=== PATIENT | female | born 1950 | race Two or more races ===

== ENCOUNTER 2016-11-18 21:48 | Inpatient (IN) | payer SELFPAY ==
[~2016-11-18] VITALS: Ht 147.3 cm; Wt 65.0 kg
[2016-11-18] MEDS ORDERED: ASPIRIN 81 MG TAB.CHEW ONE (22:11)
[2016-11-18] MEDS ORDERED: FUROSEMIDE 40 MG/4 ML VIAL ONE (22:11)
[2016-11-18] MEDS ORDERED: NITROGLYCERIN PACKET 1 GM PACKET ONE (22:11)
[2016-11-18 22:21] LABS: BASOPHILS # (AUTO) 0.1 /CMM (0.0-0.2); BASOPHILS % (AUTO) 0.3 % (0.0-2.0); DIFF TOTAL % 100 %; EOSINOPHILS # (AUTO) 0.2 /CMM (0.0-0.7); HEMATOCRIT 33 % (33-45); HEMOGLOBIN 10.2 g/dL (11.5-14.8); LYMPHOCYTES # (AUTO) 1.1 /CMM (0.8-4.8); LYMPHOCYTES % (AUTO) 7.4 % (20.0-44.0); MEAN CORPUSCULAR HEMOGLOBIN 25 PG (26.0-33.0); MEAN CORPUSCULAR HGB CONC 31 g/dl (31.0-36.0); MEAN CORPUSCULAR VOLUME 80 fL (82-100); MONOCYTES # (AUTO) 1.2 /CMM (0.1-1.30); MONOCYTES % (AUTO) 7.8 % (2.0-12.0); NEUTROPHILS # (AUTO) 12.5 /CMM (1.8-8.9); NEUTROPHILS % (AUTO) 83.5 % (43.0-81.0); PLATELET COUNT (AUTO) 570 /CMM (150-450); RED BLOOD CELL COUNT(AUTO) 4.12 MIL/uL (4.0-5.2); WHITE BLOOD COUNT (AUTO) 14.9 K/uL (4.3-11.0)
[2016-11-18] MEDS ORDERED: NITROGLYCERIN 0.4 MG/TAB BOTTLE SL ONE (22:30)
[2016-11-18] MEDS ORDERED: ASPIRIN 81 MG TAB.CHEW PO ONE (22:30)
[2016-11-18] MEDS ORDERED: FUROSEMIDE 40 MG/4 ML VIAL IV ONE (22:30)
[2016-11-18] MEDS ORDERED: NITROGLYCERIN PACKET 1 GM PACKET TD ONE (22:30)
[2016-11-18 22:39] LABS: TROPONIN I < 0.017 ng/mL (0.00-0.056)
[2016-11-18 22:44] LABS: ALANINE AMINOTRANSFERASE 51 U/L (12-78); ALBUMIN 2.5 g/dL (3.4-5.0); ANION GAP 13 (5-14); ASPARTATE AMINOTRANSFERASE 127 U/L (15-37); BILIRUBIN,DIRECT 0.1 mg/dL (0.0-0.2); BILIRUBIN,TOTAL 0.9 mg/dL (0.2-1.0); CALCIUM, SERUM 8.4 mg/dL (8.5-10.1); CARBON DIOXIDE 25 mmol/L (21-32); CHLORIDE 105 mmol/L (98-107); GFR 55 mL/min (>60); GLUCOSE 240 mg/dL (74-106); SODIUM SERUM 134 mmol/L (136-145); TOTAL PROTEIN, SERUM 7.7 g/dL (6.4-8.2); UREA NITROGEN, BLOOD 23 mg/dL (7-18)
[2016-11-18 22:46] LABS: INDIRECT BILIRUBIN 0.8 mg/dL (0.0-1.1); POTASSIUM 7.6 mmol/L (3.5-5.1)
[2016-11-18 23:42] LABS: CALCIUM, SERUM 8.9 mg/dL (8.5-10.1); CREATININE 1.1 mg/dL (0.6-1.3); POTASSIUM 5.3 mmol/L (3.5-5.1)
[2016-11-18 23:50] VITALS: BP 105/59
[2016-11-18 23:55] LABS: KETONES,URINE NEGATIVE (NEGATIVE); LEUKOCYTE ESTERASE ,URINE NEGATIVE (NEGATIVE); PH,URINE 5.5 (5.0-8.0)
[2016-11-18 23:57] LABS: ADD UA MICROSCOPIC YES
[2016-11-19 00:06] LABS: ADD URINE CULTURE NO; WBC,URINE 0-2 /HPF (0-3)
[2016-11-19 00:15] VITALS: BP 125/59
[2016-11-19] MEDS ORDERED: Z GUARD REMEDY 2 OZ OINT TP PRN (01:30)
[2016-11-19] MEDS ORDERED: ZOLPIDEM TARTRATE 5 MG TABLET PO PRN (01:30)
[2016-11-19] MEDS ORDERED: MAG HYDROX/AL HYDROX/SIMETH 30 ML UDC PO PRN (01:30)
[2016-11-19] MEDS ORDERED: ONDANSETRON HCL/PF 4 MG/2 ML VIAL IVP PRN (01:30)
[2016-11-19] MEDS ORDERED: MAGNESIUM HYDROXIDE 30 ML UDC PO PRN (01:30)
[2016-11-19] MEDS ORDERED: DEXTROSE 50%-WATER 50 ML DISP.SYRIN IV PRN (01:30)
[2016-11-19 04:00] VITALS: BP 109/61
[2016-11-19] MEDS: BLOOD SUGAR DIAGNOSTIC 1 EACH STRIP IN SCH ×4 (06:32→22:08)
[2016-11-19 08:00] VITALS: BP 106/73
[2016-11-19 08:21] LABS: PHOSPHORUS 4.3 mg/dL (2.5-4.9)
[2016-11-19 08:33] LABS: BASOPHILS # (AUTO) 0.1 /CMM (0.0-0.2); BASOPHILS % (AUTO) 0.4 % (0.0-2.0); DIFF TOTAL % 100 %; EOSINOPHILS # (AUTO) 0.1 /CMM (0.0-0.7); EOSINOPHILS % (AUTO) 0.9 % (0.0-6.0); HEMATOCRIT 29 % (33-45); HEMOGLOBIN 9.4 g/dL (11.5-14.8); LYMPHOCYTES # (AUTO) 1.6 /CMM (0.8-4.8); LYMPHOCYTES % (AUTO) 13.5 % (20.0-44.0); MEAN CORPUSCULAR HEMOGLOBIN 28 PG (26.0-33.0); MEAN CORPUSCULAR HGB CONC 32 g/dl (31.0-36.0); MEAN CORPUSCULAR VOLUME 88 fL (82-100); MONOCYTES # (AUTO) 1.1 /CMM (0.1-1.30); MONOCYTES % (AUTO) 9.6 % (2.0-12.0); NEUTROPHILS # (AUTO) 8.8 /CMM (1.8-8.9); NEUTROPHILS % (AUTO) 75.6 % (43.0-81.0); PLATELET COUNT (AUTO) 476 /CMM (150-450); RED BLOOD CELL COUNT(AUTO) 3.29 MIL/uL (4.0-5.2); WHITE BLOOD COUNT (AUTO) 11.6 K/uL (4.3-11.0)
[2016-11-19 08:36] LABS: CALCIUM, SERUM 8.5 mg/dL (8.5-10.1); POTASSIUM 4.9 mmol/L (3.5-5.1)
[2016-11-19 08:41] LABS: ALBUMIN 2.4 g/dL (3.4-5.0); BILIRUBIN,TOTAL 0.7 mg/dL (0.2-1.0); TOTAL PROTEIN, SERUM 6.9 g/dL (6.4-8.2)
[2016-11-19 08:47] LABS: THYROID STIMULATING HORMONE 2.989 uIU/mL (0.358-3.74)
[2016-11-19 08:49] LABS: TROPONIN I 0.013 ng/mL (0.00-0.056)
[2016-11-19] MEDS ORDERED: ENOXAPARIN SODIUM 30 MG/0.3 ML DISP.SYRIN SQ SCH (09:00)
[2016-11-19] MEDS ORDERED: ENOXAPARIN SODIUM 40 MG/0.4 ML DISP.SYRIN SQ SCH (09:00)
[2016-11-19] MEDS: PANTOPRAZOLE 40 MG TABLET.DR PO SCH (09:02)
[2016-11-19] MEDS: FUROSEMIDE 40 MG/4 ML VIAL IV SCH ×3 (09:03→16:39)
[2016-11-19] MEDS: ACETAMINOPHEN 325 MG TABLET PO PRN ×2 (10:13→22:40)
[2016-11-19 16:00] VITALS: BP 99/68
[2016-11-19] MEDS: INSULIN REGULAR, HUMAN 100 UNIT/ML 3 ML VIAL SQ PRN (17:25)
[2016-11-19] MEDS: GUAIFENESIN/D-METHORPHAN HB 5 ML UDC PO PRN ×2 (17:30→21:54)
[2016-11-19 20:00] VITALS: BP 95/56
[2016-11-19] MEDS: INSULIN DETEMIR 100 UNIT/ML CARTRIDGE SQ SCH (22:07)
[2016-11-20] MEDS: GUAIFENESIN/D-METHORPHAN HB 5 ML UDC PO PRN ×3 (05:33→20:32)
[2016-11-20 07:05] LABS: ALANINE AMINOTRANSFERASE 36 U/L (12-78); ALBUMIN 2.4 g/dL (3.4-5.0); ANION GAP 8 (5-14); ASPARTATE AMINOTRANSFERASE 41 U/L (15-37); BILIRUBIN,TOTAL 0.8 mg/dL (0.2-1.0); CALCIUM, SERUM 8.4 mg/dL (8.5-10.1); CARBON DIOXIDE 31 mmol/L (21-32); CHLORIDE 104 mmol/L (98-107); CREATININE 1.1 mg/dL (0.6-1.3); GFR 49 mL/min (>60); GLUCOSE 55 mg/dL (74-106); PHOSPHORUS 4.3 mg/dL (2.5-4.9); POTASSIUM 3.5 mmol/L (3.5-5.1); SODIUM SERUM 139 mmol/L (136-145); TROPONIN I < 0.017 ng/mL (0.00-0.056); UREA NITROGEN, BLOOD 23 mg/dL (7-18)
[2016-11-20] MEDS: BLOOD SUGAR DIAGNOSTIC 1 EACH STRIP IN SCH ×4 (07:25→20:32)
[2016-11-20] MEDS ORDERED: WARFARIN SODIUM 5 MG TABLET PO SCH (07:30)
[2016-11-20 07:52] VITALS: BP 98/60
[2016-11-20 08:00] VITALS: BP 98/60
[2016-11-20 08:12] LABS: BASOPHILS % (AUTO) 0.2 % (0.0-2.0); DIFF TOTAL % 100 %; EOSINOPHILS # (AUTO) 0.2 /CMM (0.0-0.7); EOSINOPHILS % (AUTO) 2.4 % (0.0-6.0); HEMATOCRIT 30 % (33-45); HEMOGLOBIN 9.4 g/dL (11.5-14.8); LYMPHOCYTES # (AUTO) 1.4 /CMM (0.8-4.8); LYMPHOCYTES % (AUTO) 13.6 % (20.0-44.0); MEAN CORPUSCULAR HEMOGLOBIN 27 PG (26.0-33.0); MEAN CORPUSCULAR HGB CONC 32 g/dl (31.0-36.0); MEAN CORPUSCULAR VOLUME 84 fL (82-100); MONOCYTES # (AUTO) 1.1 /CMM (0.1-1.30); MONOCYTES % (AUTO) 10.2 % (2.0-12.0); NEUTROPHILS # (AUTO) 7.8 /CMM (1.8-8.9); NEUTROPHILS % (AUTO) 73.6 % (43.0-81.0); PLATELET COUNT (AUTO) 493 /CMM (150-450); RED BLOOD CELL COUNT(AUTO) 3.52 MIL/uL (4.0-5.2); WHITE BLOOD COUNT (AUTO) 10.6 K/uL (4.3-11.0)
[2016-11-20] MEDS: PANTOPRAZOLE 40 MG TABLET.DR PO SCH (08:53)
[2016-11-20] MEDS: ACETAMINOPHEN 325 MG TABLET PO PRN (08:57)
[2016-11-20] MEDS ORDERED: ENOXAPARIN SODIUM 60 MG/0.6 ML DISP.SYRIN SQ SCH (09:00)
[2016-11-20] MEDS ORDERED: IV SET PRIMARY PUMP SET 1 EA INFUS.SET MC ONE ×2 (10:22→14:43)
[2016-11-20] MEDS: Magnesium 1GM/D5W 100ML PREMIX 100 ML IV SCH ×4 (10:28→13:21)
[2016-11-20] MEDS: INSULIN REGULAR, HUMAN 100 UNIT/ML 3 ML VIAL SQ PRN ×2 (12:25→17:49)
[2016-11-20 13:25] LABS: PROTHROMBIN TIME 102.4 SECS (9.5-12.7)
[2016-11-20 13:50] LABS: INR 9.27 (0.87-1.13)
[2016-11-20] MEDS: SOD FERRIC GLUC 125 MG in IV NS 0.9% 100 ML IV SCH (15:12)
[2016-11-20 16:00] VITALS: BP 104/63
[2016-11-20] MEDS ORDERED: CETI1SOL48 PO (16:02)
[2016-11-20] MEDS ORDERED: FURO-145 PO (16:02)
[2016-11-20] MEDS ORDERED: PARO20TA6 PO (16:02)
[2016-11-20] MEDS ORDERED: PANT40TA4 PO (16:02)
[2016-11-20] MEDS ORDERED: METO100T3 PO (16:02)
[2016-11-20] MEDS ORDERED: GABA-532 PO (16:02)
[2016-11-20] MEDS ORDERED: WARF1TAB6 PO (16:02)
[2016-11-20] MEDS ORDERED: METF500T4 PO (16:02)
[2016-11-20 20:00] VITALS: BP 107/61
[2016-11-20] MEDS: INSULIN DETEMIR 100 UNIT/ML CARTRIDGE SQ SCH (20:40)
[2016-11-21] MEDS: BLOOD SUGAR DIAGNOSTIC 1 EACH STRIP IN SCH ×4 (06:48→22:42)
[2016-11-21] MEDS: GUAIFENESIN/D-METHORPHAN HB 5 ML UDC PO PRN ×3 (06:48→21:55)
[2016-11-21] MEDS: INSULIN REGULAR, HUMAN 100 UNIT/ML 3 ML VIAL SQ PRN ×4 (07:17→22:45)
[2016-11-21 07:33] LABS: BASOPHILS % (AUTO) 0.2 % (0.0-2.0); DIFF TOTAL % 100 %; EOSINOPHILS # (AUTO) 0.2 /CMM (0.0-0.7); EOSINOPHILS % (AUTO) 1.7 % (0.0-6.0); HEMATOCRIT 28 % (33-45); HEMOGLOBIN 9.1 g/dL (11.5-14.8); LYMPHOCYTES # (AUTO) 1.1 /CMM (0.8-4.8); LYMPHOCYTES % (AUTO) 9.7 % (20.0-44.0); MEAN CORPUSCULAR HEMOGLOBIN 28 PG (26.0-33.0); MEAN CORPUSCULAR HGB CONC 33 g/dl (31.0-36.0); MEAN CORPUSCULAR VOLUME 85 fL (82-100); MONOCYTES # (AUTO) 0.8 /CMM (0.1-1.30); MONOCYTES % (AUTO) 6.8 % (2.0-12.0); NEUTROPHILS # (AUTO) 9.5 /CMM (1.8-8.9); NEUTROPHILS % (AUTO) 81.6 % (43.0-81.0); PLATELET COUNT (AUTO) 468 /CMM (150-450); RED BLOOD CELL COUNT(AUTO) 3.31 MIL/uL (4.0-5.2); WHITE BLOOD COUNT (AUTO) 11.6 K/uL (4.3-11.0)
[2016-11-21 08:00] VITALS: BP 95/66
[2016-11-21 08:07] LABS: PROTHROMBIN TIME 57.5 SECS (9.5-12.7)
[2016-11-21 08:14] LABS: INR 5.24 (0.87-1.13)
[2016-11-21 08:17] LABS: ALBUMIN 2.5 g/dL (3.4-5.0); BILIRUBIN,TOTAL 0.8 mg/dL (0.2-1.0); CALCIUM, SERUM 8.3 mg/dL (8.5-10.1); PHOSPHORUS 3.3 mg/dL (2.5-4.9); POTASSIUM 4.8 mmol/L (3.5-5.1)
[2016-11-21] MEDS: PANTOPRAZOLE 40 MG TABLET.DR PO SCH (08:52)
[2016-11-21 09:18] VITALS: BP 95/66
[2016-11-21] MEDS: ACETAMINOPHEN 325 MG TABLET PO PRN (12:10)
[2016-11-21] MEDS: SOD FERRIC GLUC 125 MG in IV NS 0.9% 100 ML IV SCH (14:48)
[2016-11-21 16:00] VITALS: BP 109/64
[2016-11-21 16:37] LABS: *SPE ALBUMIN 2.7 g/dL (2.9-4.4)
[2016-11-21] MEDS: BENZONATATE 100 MG CAPSULE PO PRN (16:50)
[2016-11-21 17:34] VITALS: BP 186/83
[2016-11-21 20:00] VITALS: BP 99/51
[2016-11-21] MEDS: INSULIN DETEMIR 100 UNIT/ML CARTRIDGE SQ SCH (22:49)
[2016-11-22] MEDS: BLOOD SUGAR DIAGNOSTIC 1 EACH STRIP IN SCH ×3 (06:00→17:46)
[2016-11-22] MEDS ORDERED: ROCURONIUM BROMIDE 50 MG/5 ML ONE (07:03)
[2016-11-22] MEDS ORDERED: MIDAZOLAM HCL 2 MG/2ML VIAL ONE (07:03)
[2016-11-22] MEDS ORDERED: FENTANYL PF 100MCG/2ML AMPUL ONE (07:03)
[2016-11-22 07:59] LABS: INR 2.94 (0.87-1.13); PROTHROMBIN TIME 32.1 SECS (9.5-12.7)
[2016-11-22 08:00] VITALS: BP 92/53
[2016-11-22] MEDS: BENZONATATE 100 MG CAPSULE PO PRN (08:36)
[2016-11-22] MEDS: PANTOPRAZOLE 40 MG TABLET.DR PO SCH (08:36)
[2016-11-22] MEDS ORDERED: IV SET PRIMARY PUMP SET 1 EA INFUS.SET MC ONE (15:15)
[2016-11-22] MEDS: SOD FERRIC GLUC 125 MG in IV NS 0.9% 100 ML IV SCH (15:16)
[2016-11-22 16:00] VITALS: BP 108/58
[2016-11-22] MEDS: INSULIN REGULAR, HUMAN 100 UNIT/ML 3 ML VIAL SQ PRN (17:49)
== END 2016-11-22 22:43 | disposition home or self-care (01) | DRG 292 ==
LOC: ER 21:49 → TELE 23:40 → MED 11-19 11:09
PROVIDERS: ADMIT Nurse Practitioner Acute Care; ATTEND Nurse Practitioner Acute Care
DX: I11.0 Hypertensive heart disease with heart failure (principal); I48.92 Unspecified atrial flutter; I50.33 Acute on chronic diastolic (congestive) heart failure; E11.65 Type 2 diabetes mellitus with hyperglycemia; E87.5 Hyperkalemia; E86.0 Dehydration; E66.9 Obesity, unspecified; I25.10 Atherosclerotic heart disease of native coronary artery without angina pectoris; Z95.2 Presence of prosthetic heart valve; Z95.1 Presence of aortocoronary bypass graft; Z95.0 Presence of cardiac pacemaker; Z79.4 Long term (current) use of insulin; D50.9 Iron deficiency anemia, unspecified; D47.3 Essential (hemorrhagic) thrombocythemia; Z68.30 Body mass index [BMI] 30.0-30.9, adult; I48.91 Unspecified atrial fibrillation; I50.1 Left ventricular failure, unspecified
CPT/HCPCS: 36415; 71010-TC; 80048-TC; 80053-TC; 80061-TC; 80076-TC; 81000-TC; 82306; 82728-TC; 82962-TC; 83540-TC; 83735-TC; 83880; 84100-TC; 84155; 84165; 84439-TC; 84443-TC; 84484-TC; 85025-TC; 85610-TC; 87081-TC; 93307-TC; A4606; J1650; J1815; J1940; J2250; J2916; J3010; J3475; J7030; Z7610

== ENCOUNTER 2022-08-06 17:28 | Inpatient (IN) | payer MEDICARE, OTHER ==
[~2022-08-06] VITALS: Ht 152.4 cm; Wt 69.4 kg
[~2022-08-06 17:28] MED LIST: CETI1SOL48 PO; FURO-145 PO; GABA-532 PO; METF-440 PO; METO100T14 PO; PANT40TA49 PO; PARO20TA7 PO
--- NOTE | 2022-08-06 17:30 | NUR ---
BIB RA 37 FROM HOME,SOB X 2 HRS,BLOOD NLNNJ=[id number]
--- NOTE | 2022-08-06 17:40 | NUR ---
IV established by paramedics LAC 20g infusing
[2022-08-06] MEDS ORDERED: DILTIAZEM HCL 25 MG IV IVP ONE (18:00)
--- NOTE | 2022-08-06 19:03 | NUR ---
COVID SWAB COLLECTED AND SENT TO LAB
[2022-08-06 19:21] LABS: CALCIUM, SERUM 8.2 mg/dL (8.5-10.1); CARBON DIOXIDE 26 mmol/L (21-32); CHLORIDE 104 mmol/L (98-107); CREATININE 1.8 mg/dL (0.6-1.3); POTASSIUM 5.8 mmol/L (3.5-5.1); SODIUM SERUM 134 mmol/L (136-145); UREA NITROGEN, BLOOD 25 mg/dL (7-18)
--- NOTE | 2022-08-06 19:21 | NUR ---
tech at bedside for ekg
--- NOTE | 2022-08-06 19:23 | NUR ---
BG 373
[2022-08-06] MEDS ORDERED: HUM10VIA3 SQ (19:28)
[2022-08-06] MEDS ORDERED: LEVO50TA8 PO (19:28)
[2022-08-06] MEDS ORDERED: WARF3TAB59 PO (19:28)
[2022-08-06] MEDS ORDERED: MONT10TA22 PO (19:28)
[2022-08-06] MEDS ORDERED: ATOR40TA PO (19:28)
[2022-08-06] MEDS ORDERED: METO200T49 PO (19:28)
[2022-08-06 19:34] LABS: ALANINE AMINOTRANSFERASE 23 U/L (12-78); ALKALINE PHOSPHATASE 137 U/L (46-116); ASPARTATE AMINOTRANSFERASE 34 U/L (15-37); BILIRUBIN,DIRECT 0.4 mg/dL (0.0-0.2); TOTAL PROTEIN, SERUM 8.8 g/dL (6.4-8.2)
[2022-08-06 19:35] LABS: GLUCOSE 373 mg/dL (74-106)
--- NOTE | 2022-08-06 19:41 | NUR ---
RECEIVED REPORT FROM GOPI NOVA. PATIENT CAME EARLIER WITH CC OF SOB X2HRS. PATIENT IS UZBEK SPEAKING. WAS COMPLAINING OF SORE THROAT. WITH PERIPHERAL LINE ON RIGHT FA G20. ATTACHED TO MONITOR. VITALS CHECKED.
[2022-08-06] MEDS ORDERED: DILTIAZEM HCL 25 MG IV ONE (19:48)
[2022-08-06 20:08] LABS: BASOPHILS % (AUTO) 0.2 % (0.0-2.0); EOSINOPHILS % (AUTO) 0.6 % (0.0-6.0); HEMATOCRIT 34 % (33-45); HEMOGLOBIN 10.9 g/dL (11.5-14.8); LYMPHOCYTES % (AUTO) 7.2 % (20.0-44.0); MEAN CORPUSCULAR HGB CONC 32 g/dl (31.0-36.0); MEAN CORPUSCULAR VOLUME 89 fL (82-100); MONOCYTES # (AUTO) 0.9 K/uL (0.1-1.30); MONOCYTES % (AUTO) 6.3 % (2.0-12.0); NEUTROPHILS # (AUTO) 12.2 K/uL (1.8-8.9); NEUTROPHILS % (AUTO) 85.7 % (43.0-81.0); PLATELET COUNT (AUTO) 261 K/uL (150-450); WHITE BLOOD COUNT (AUTO) 14.2 K/uL (4.3-11.0)
[2022-08-06] MEDS ORDERED: FUROSEMIDE 40 MG/4 ML VIAL IV ONE (20:30)
--- NOTE | 2022-08-06 20:49 | NUR ---
DIMITRIS [facility] [phone]. UPDATES GIVEN. PER DR MAURER PT HAS RAPID AFIB AND SAFE TO TRANSFER.
[2022-08-06] MEDS ORDERED: FUROSEMIDE 40 MG/4 ML VIAL ONE (20:54)
--- NOTE | 2022-08-06 21:28 | NUR ---
DR. WALSH SPEAKING WITH DR. MAURER.
--- NOTE | 2022-08-06 21:32 | NUR ---
PATIENT WAS WALKING TO THE BATHROOM DESPITE BEING TOLD THAT SHE IS NOT SAFE BECAUSE OF SOB AND TACHYCARDIA. SHE REMOVED HER MRB ENGINEER AND OXYGEN. SHE WAS OUT OF BREATH. VITALS CHECKED. HER OXYGEN SATS WENT DOWN TO 86
--- NOTE | 2022-08-06 23:59 | NUR ---
RECEIVED A CALL FROM DIMITRIS SIERRA: TRANSFER PT TO [facility] [id number] ADMITTING MD : DR EWA KING: THEY WILL CALL BACK
[2022-08-07] VITALS (12 sets, daily range): BP systolic 80–110; BP diastolic 28–113
--- NOTE | 2022-08-07 01:27 | NUR ---
PER ERA, CERTIFIED PROFESSIONAL CONTROLLER, WAITING FOR THE CALL FROM "[facility]" FOR ALS TRANSPO [facility]: [phone]
--- NOTE | 2022-08-07 02:45 | NUR ---
MARYANN TO [facility], [facility] PEST CONTROL PILOT, NO ALS TRANSPORTATION AVAILABLE TO TRANSFER THE PT TO [facility]. REC'D AUTH FROM [facility] TO KEEP THE PT. WILL CARRY OUT DR. WALSH'S ORDERS.
[2022-08-07] MEDS ORDERED: ZOLPIDEM TARTRATE 5 MG TABLET PO ONE (03:00)
[2022-08-07] MEDS ORDERED: DEXTROSE 50%-WATER 50 ML DISP.SYRIN IV PRN (03:00)
[2022-08-07] MEDS ORDERED: SODIUM POLYSTYRENE SULFONATE 15 G/60 ML BOTTLE PO ONE (03:00)
[2022-08-07] MEDS ORDERED: IPRATROPIUM NEB FS 0.5 MG/2.5 ML AMPUL.NEB NEB PRN ×2 (03:00→04:00)
[2022-08-07] MEDS ORDERED: ALBUTEROL FS 2.5 MG/3 ML VIAL.NEB NEB PRN (03:00)
[2022-08-07] MEDS ORDERED: INSULIN GLARGINE, 100 UNIT/ML CARTRIDGE SQ ONE ×2 (03:00→04:28)
[2022-08-07] MEDS ORDERED: ZOLPIDEM TARTRATE 5 MG TABLET PO PRN (03:30)
[2022-08-07] MEDS ORDERED: SODIUM POLYSTYRENE SULFONATE 15 G/60 ML BOTTLE ONE (03:32)
--- NOTE | 2022-08-07 05:01 | NUR ---
BS 193. 20 UNITS GLARGINE GIVEN SQ ON LEFT DELTOID
--- NOTE | 2022-08-07 05:20 | NUR ---
PHARMACY CASHIER AT PT'S BEDSIDE
[2022-08-07 05:57] LABS: BASOPHILS # (AUTO) 0.1 K/uL (0.0-0.2); BASOPHILS % (AUTO) 0.3 % (0.0-2.0); EOSINOPHILS % (AUTO) 0.2 % (0.0-6.0); HEMATOCRIT 33 % (33-45); HEMOGLOBIN 10.6 g/dL (11.5-14.8); LYMPHOCYTES # (AUTO) 1.4 K/uL (0.8-4.8); LYMPHOCYTES % (AUTO) 6.9 % (20.0-44.0); MEAN CORPUSCULAR HGB CONC 32 g/dl (31.0-36.0); MEAN CORPUSCULAR VOLUME 87 fL (82-100); MONOCYTES # (AUTO) 1.3 K/uL (0.1-1.30); MONOCYTES % (AUTO) 6.3 % (2.0-12.0); NEUTROPHILS # (AUTO) 17.2 K/uL (1.8-8.9); NEUTROPHILS % (AUTO) 86.3 % (43.0-81.0); PLATELET COUNT (AUTO) 253 K/uL (150-450); RED BLOOD CELL COUNT(AUTO) 3.78 MIL/uL (4.0-5.2); WHITE BLOOD COUNT (AUTO) 19.9 K/uL (4.3-11.0)
[2022-08-07 06:14] LABS: ALANINE AMINOTRANSFERASE 20 U/L (12-78); ALBUMIN 2.8 g/dL (3.4-5.0); ALKALINE PHOSPHATASE 129 U/L (46-116); ASPARTATE AMINOTRANSFERASE 49 U/L (15-37); BILIRUBIN,TOTAL 1.3 mg/dL (0.2-1.0); CALCIUM, SERUM 8.3 mg/dL (8.5-10.1); CARBON DIOXIDE 25 mmol/L (21-32); CHLORIDE 105 mmol/L (98-107); GLUCOSE 231 mg/dL (74-106); POTASSIUM 5.4 mmol/L (3.5-5.1); SODIUM SERUM 138 mmol/L (136-145); TOTAL PROTEIN, SERUM 8.6 g/dL (6.4-8.2); UREA NITROGEN, BLOOD 26 mg/dL (7-18)
[2022-08-07 06:23] LABS: THYROID STIMULATING HORMONE 2.047 uIU/mL (0.358-3.74)
--- NOTE | 2022-08-07 07:26 | NUR ---
REPORT GIVEN TO GOPI NOVA
[2022-08-07] MEDS ORDERED: PANTOPRAZOLE 40 MG TABLET.DR PO ONE (07:43)
[2022-08-07] MEDS ORDERED: LEVOTHYROXINE SODIUM 50 MCG TABLET ONE (07:43)
[2022-08-07] MEDS: LEVOTHYROXINE SODIUM 50 MCG TABLET PO SCH (07:45)
[2022-08-07] MEDS: PANTOPRAZOLE 40 MG TABLET.DR PO SCH (07:45)
--- NOTE | 2022-08-07 07:45 | NUR ---
Accucheck BS = 208
--- NOTE | 2022-08-07 07:53 | NUR ---
BED GIVEN 118-2
--- NOTE | 2022-08-07 08:00 | NUR ---
regular insulin 6units given
--- NOTE | 2022-08-07 08:05 | NUR ---
production floater at bedside
[2022-08-07] MEDS: INSULIN REGULAR, HUMAN 100 UNIT/ML 3 ML VIAL SQ PRN ×2 (08:14→12:16)
[2022-08-07] MEDS: BLOOD SUGAR DIAGNOSTIC 1 EACH STRIP VI SCH ×4 (08:16→22:29)
[2022-08-07] MEDS: INSULIN GLARGINE, 100 UNIT/ML CARTRIDGE SQ SCH ×2 (08:30→09:00)
--- NOTE | 2022-08-07 08:41 | NUR ---
report given to alexandro NGUYỄN
[2022-08-07] MEDS ORDERED: METOPROLOL SUCCINATE 50 MG TAB.SR.24H PO SCH ×2 (09:00)
--- NOTE | 2022-08-07 10:12 | NUR ---
RECEIVED PATIENT FROM ED VIA GURNEY ACCOMPANIED BY TWO NURSES. PATIENT IS ON NON REBREATHER MASK @ 10L MIN WITH OXYGEN SATURATION IN THE LOW 80'S. PATIENT NOTED TO BE A LITTLE AGITATED. ASSISTED PATIENT TO BED AND ATTACHED TO TELE MONITOR AND NOTED TO HAVE HEART RATE OF 132 WITH AN A-FIB ON TELE MONITOR AND RESPIRATION RATE OF 38. NOTIFIED RT RIGHT AWAY TO COME SEE THE PATIENT. PATENT DENIES ANY CHEST PAIN OR DISCOMFORT. PATIENT IS ALERT, ORIENTED X 3. MADE PATIENT COMFORTABLE AND INSTRUCTED TO PLEASE STAY IN BED FOR NOW. IV ACCESS ON LEFT AC INTACT, FLUSHES WELL, NO S/S INFILTRATION NOTED. CALL LIGHT WITHIN REACH. ALL SAFETY MEASURES IN PLACE. BED LOCKED AND IN LOWEST POSITION. HOB KEPT ELEVATED. WILL CONTINUE TO MONITOR PATIENT. V/S FOLLOWS: BP 109/57, TEMP 97.6, RR 38
--- NOTE | 2022-08-07 11:00 | NUR ---
PATIENT IN BED, PATIENT IS AWAKE, ALERT, ORIENTED, SEEMS CALM AT THIS TIME. ON NON REBREATHER MASK @ 15 L/MIN WITH OXYGEN SATURATION OF 95%.
[2022-08-07] MEDS: CEFTRIAXONE 1 G in IV D5W 50 ML IV SCH (11:09)
[2022-08-07] MEDS: FUROSEMIDE 40 MG/4 ML VIAL IV SCH ×2 (11:09→16:27)
[2022-08-07] MEDS: GABAPENTIN 100 MG CAPSULE PO SCH ×3 (11:09→16:27)
[2022-08-07] MEDS: ATORVASTATIN 40 MG TABLET PO SCH (17:20)
[2022-08-07] MEDS: MONTELUKAST SODIUM (10MG) 10 MG TABLET PO SCH (17:20)
[2022-08-07] MEDS: ACETAMINOPHEN 325 MG TABLET PO PRN (17:32)
--- NOTE | 2022-08-07 18:38 | NUR ---
ALLOPATHIC DOCTOR CLOSING NOTES: PATIENT IN BED AWAKE. NO RESPIRATORY DISTRESS NOTED ON OXYGEN @ 15 L/MIN VIA NONREBREATHER MASK WITH OXYGEN SATURATION OF 95%. ON A-FIB ON TELE MONITOR WITH HR OF 130. NO C/O CHEST PAIN OR DISCOMFORT. ALL NEEDS MET AND ANTICIPATED. PATIENT'S TEMP IS 98.3. WILL ENDORSE TO NEXT SHIFT NURSE FOR CONTINUITY OF CARE.
--- NOTE | 2022-08-07 20:12 | NUR ---
DR. WALSH INFORMED PATIENT IS WITH BP 82/54 HR 131 15 LITERS NON REBREATHING MASK 15 LITERS. TELE MONITOR A.FIB. CONTROLLED 131. ALERT AND ORIENTED TIMES 3. IV SITE ON LEFT FOREARM PATENT. DECLINES PAIN OR DISCOMFORT.
--- NOTE | 2022-08-07 21:30 | NUR ---
2129 patient's blood pressure persistently low in the 80s diastolic, 40s systolic, patient awake and verbally responsive, on non rebreather mask with o2 saturation in the mid 90s. no signs of respiratory distress. hob elevated for maximum oxygenation. Dr. Lan notified with order to transfer to icu and to start on levophed drip for bp support. order noted and carried out.
--- NOTE | 2022-08-07 21:40 | NUR ---
2140 bp re checked manually 82/39. patient remains awake and verbally responsive. no signs of distress noted.
[2022-08-07] MEDS ORDERED: AZITHROMYCIN 500 MG in IV D5W 250 ML IV SCH (22:00)
[2022-08-07] MEDS ORDERED: INSULIN GLARGINE, 100 UNIT/ML CARTRIDGE SQ SCH (22:00)
[2022-08-07] MEDS: *INSULIN REGULAR(HUMULIN R)HUM 100 UNIT/ML VIAL SQ PRN (22:30)
--- NOTE | 2022-08-07 22:52 | NUR ---
1038PM REPORT GIVEN TO [facility] ICU. PATIENT IS ALERT TIMES 3. CYMRAES SPEAKING. DECLINES PAIN. HOB ELEVATED. IV ON LEFT FOREARM PATENT. TELE MONITOR READING A.FIB. CONTROLLED.
--- NOTE | 2022-08-07 22:55 | NUR ---
2255 transferred to icu on acls protocol. patient awake and verbally responsive, no signs of distress noted.
--- NOTE | 2022-08-07 22:57 | NUR ---
SPOKE TO JUAN AT [facility] AFTER HOURS FOR VERIFICATION OF ZITROMAX ORDER. PATIENT TRANSFERING TO ICU.
--- NOTE | 2022-08-07 23:00 | NUR ---
RN NOTES RECEIVED PATIENT FROM TELE-1, A 71 Y/O FEMALE PATIENT, WITH DX OF CHF, AND HX OF HTN, HLD, DM, AFIB. A/O X 3-4 YAKUT SPEAKING, ON NON REBREATHER MASK @ 15LPM SATING AT 95%, RESPIRATORY EVEN AND UNLABORED, NO S/S OF DISTRESS NOTED, DENIES ANY PAIN. PATIENT TRANSFERED TO ICU DUE TO LOW BLOOD PRESSURE. PATIENT WITH LAC # 20 PERIPHERAL LINE, PATENT INTACT, FLUSHED WITH NS. BODY ASSESSMENT DONE SKIN INTACT. CONNECTED TO BEDSIDE MONITOR, V/S TAKES AND RECORDED. ALL SAFETY PRECAUTION PROVIDED. BED IN LOWEST POSITION, LOCKED, BED ALARMED ARM. CALL LIGHT WITH IN REACH. CONTINUE TO MONITOR
--- NOTE | 2022-08-07 23:15 | NUR ---
RN NOTES IV LINE INSERTED TO RIGHT FOREARM # 20.
[2022-08-07] MEDS ORDERED: NOREPINEPHRINE 8MG/250ML RTU 250 ML IV ONE (23:21)
[2022-08-07] MEDS: NOREPINEPHRINE 8 MG in IV NS 0.9% 242 ML IV PRN (23:25)
[2022-08-07] MEDS ORDERED: IV NS 0.9% 250 ML IV PRN (23:30)
[2022-08-07] MEDS ORDERED: AZITHROMYCIN 500 MG VIAL ONE (23:33)
[2022-08-08] VITALS (87 sets, daily range): BP systolic 48–156; BP diastolic 23–94
[2022-08-08 04:06] LABS: BASOPHILS % (AUTO) 0.2 % (0.0-2.0); EOSINOPHILS % (AUTO) 0.4 % (0.0-6.0); HEMATOCRIT 34 % (33-45); LYMPHOCYTES # (AUTO) 1.2 K/uL (0.8-4.8); LYMPHOCYTES % (AUTO) 5.2 % (20.0-44.0); MEAN CORPUSCULAR HGB CONC 32 g/dl (31.0-36.0); MEAN CORPUSCULAR VOLUME 88 fL (82-100); MONOCYTES # (AUTO) 1.4 K/uL (0.1-1.30); MONOCYTES % (AUTO) 6.1 % (2.0-12.0); NEUTROPHILS # (AUTO) 19.7 K/uL (1.8-8.9); NEUTROPHILS % (AUTO) 88.1 % (43.0-81.0); PLATELET COUNT (AUTO) 280 K/uL (150-450); RED BLOOD CELL COUNT(AUTO) 3.89 MIL/uL (4.0-5.2); WHITE BLOOD COUNT (AUTO) 22.4 K/uL (4.3-11.0)
[2022-08-08 04:11] LABS: CALCIUM, SERUM 8.5 mg/dL (8.5-10.1); CARBON DIOXIDE 26 mmol/L (21-32); CHLORIDE 100 mmol/L (98-107); CREATININE 2.7 mg/dL (0.6-1.3); GLUCOSE 270 mg/dL (74-106); MAGNESIUM 1.8 mg/dL (1.8-2.4); SODIUM SERUM 133 mmol/L (136-145); UREA NITROGEN, BLOOD 41 mg/dL (7-18)
[2022-08-08] MEDS: PANTOPRAZOLE 40 MG TABLET.DR PO SCH (07:53)
[2022-08-08] MEDS: BLOOD SUGAR DIAGNOSTIC 1 EACH STRIP VI SCH ×4 (07:54→22:13)
[2022-08-08] MEDS: LEVOTHYROXINE SODIUM 50 MCG TABLET PO SCH (07:54)
[2022-08-08] MEDS: CEFTRIAXONE 1 G in IV D5W 50 ML IV SCH (08:14)
[2022-08-08] MEDS: GABAPENTIN 100 MG CAPSULE PO SCH ×3 (08:14→16:02)
[2022-08-08] MEDS: INSULIN GLARGINE, 100 UNIT/ML CARTRIDGE SQ SCH ×2 (08:19→09:00)
[2022-08-08] MEDS ORDERED: FUROSEMIDE 40 MG/4 ML VIAL IV SCH (09:00)
[2022-08-08] MEDS ORDERED: METOPROLOL SUCCINATE 25 MG TAB.SR.24H PO SCH ×2 (09:00)
[2022-08-08] MEDS ORDERED: DIGOXIN INJ 0.5 MG/2 ML AMPUL IV ONE (09:00)
[2022-08-08] MEDS ORDERED: AMIODARONE HCL 200 MG TABLET PO SCH (09:00)
[2022-08-08 09:22] LABS: THYROID STIMULATING HORMONE 0.874 uIU/mL (0.358-3.74)
[2022-08-08] MEDS ORDERED: ALBUTEROL FS 2.5 MG/3 ML VIAL.NEB NEB PRN (09:30)
--- NOTE | 2022-08-08 09:44 | NUR ---
RN OPENING NOTES PT RESTING IN BED, A/O X 3-4 CZECH SPEAKING, CURRENTLY ON HI FLOW NC 40L AT 100%. RESPIRATORY EVEN AND UNLABORED, NO S/S OF DISTRESS NOTED, DENIES ANY PAIN. PATIENT WITH LAC # 20 PERIPHERAL LINE, RFA 20G, AND LEFT UA MIDLINE. TELE READS AFIB, CURRENT HR 135. ALL SAFETY MEASURES IN PLACE, WILL CONT. TO MONITOR THROUGHOUT SHIFT.
[2022-08-08] MEDS: DIGOXIN INJ 0.5 MG/2 ML AMPUL IV SCH ×3 (11:14→23:59)
--- NOTE | 2022-08-08 11:30 | NUR ---
PATIENT NOTED MORE TACHYCARDIC 170'S. STAT EKG SHOWED SVT. RELAYED TO DR. HERNANDEZ WITH NEW ORDER RECEIVED TO AMIO BOLUS THEN DRIP. ABG RESULTS RELAYED TO DR. RO WITH NNO GIVEN.
[2022-08-08] MEDS: NOREPINEPHRINE 8 MG in IV NS 0.9% 242 ML IV PRN (11:32)
[2022-08-08] MEDS ORDERED: AMIODARONE 150 MG in IV D5W 100 ML IV ONE (12:00)
[2022-08-08] MEDS ORDERED: VANCOMYCIN 1 GM in IV D5W 250 ML IV SCH (12:00)
[2022-08-08] MEDS: INSULIN REGULAR, HUMAN 100 UNIT/ML 3 ML VIAL SQ PRN ×2 (12:02→16:40)
[2022-08-08] MEDS: AMIODARONE 450 MG in IV D5W 241 ML IV PRN ×2 (12:25→22:27)
[2022-08-08] MEDS: PIPERACILLIN /TAZOBACTAM 2.25 G in IV D5W 50 ML IV SCH ×2 (12:43→20:23)
[2022-08-08 13:23] LABS: MAGNESIUM 1.8 mg/dL (1.8-2.4); PHOSPHORUS 3.1 mg/dL (2.5-4.9)
[2022-08-08] MEDS: ACETAMINOPHEN 325 MG TABLET PO PRN (13:52)
[2022-08-08] MEDS: PHENYLEPHRINE 50 MG in IV NS 0.9% 245 ML IV PRN (15:19)
[2022-08-08] MEDS: MONTELUKAST SODIUM (10MG) 10 MG TABLET PO SCH (17:31)
[2022-08-08] MEDS: ATORVASTATIN 40 MG TABLET PO SCH (17:31)
[2022-08-08] MEDS: *INSULIN REGULAR(HUMULIN R)HUM 100 UNIT/ML VIAL SQ PRN (22:13)
[2022-08-09] VITALS (93 sets, daily range): BP systolic 85–155; BP diastolic 32–96
[2022-08-09] MEDS: ACETAMINOPHEN 325 MG TABLET PO PRN ×2 (02:40→19:08)
[2022-08-09] MEDS: PHENYLEPHRINE 50 MG in IV NS 0.9% 245 ML IV PRN ×3 (02:42→18:52)
[2022-08-09 04:35] LABS: BASOPHILS # (AUTO) 0.1 K/uL (0.0-0.2); BASOPHILS % (AUTO) 0.4 % (0.0-2.0); EOSINOPHILS % (AUTO) 0.4 % (0.0-6.0); HEMATOCRIT 29 % (33-45); HEMOGLOBIN 9.6 g/dL (11.5-14.8); LYMPHOCYTES % (AUTO) 4.6 % (20.0-44.0); MEAN CORPUSCULAR HGB CONC 33 g/dl (31.0-36.0); MEAN CORPUSCULAR VOLUME 87 fL (82-100); MONOCYTES % (AUTO) 4.9 % (2.0-12.0); NEUTROPHILS # (AUTO) 18.8 K/uL (1.8-8.9); NEUTROPHILS % (AUTO) 89.7 % (43.0-81.0); PLATELET COUNT (AUTO) 243 K/uL (150-450); RED BLOOD CELL COUNT(AUTO) 3.39 MIL/uL (4.0-5.2)
[2022-08-09 05:36] LABS: ALANINE AMINOTRANSFERASE 18 U/L (12-78); ALBUMIN 1.9 g/dL (3.4-5.0); ALKALINE PHOSPHATASE 102 U/L (46-116); ASPARTATE AMINOTRANSFERASE 51 U/L (15-37); BILIRUBIN,TOTAL 1.3 mg/dL (0.2-1.0); CALCIUM, SERUM 7.2 mg/dL (8.5-10.1); CARBON DIOXIDE 21 mmol/L (21-32); CHLORIDE 101 mmol/L (98-107); CREATININE 2.2 mg/dL (0.6-1.3); GLUCOSE 228 mg/dL (74-106); MAGNESIUM 1.4 mg/dL (1.8-2.4); PHOSPHORUS 2.2 mg/dL (2.5-4.9); POTASSIUM 3.9 mmol/L (3.5-5.1); SODIUM SERUM 132 mmol/L (136-145); TOTAL PROTEIN, SERUM 6.9 g/dL (6.4-8.2); UREA NITROGEN, BLOOD 44 mg/dL (7-18)
[2022-08-09] MEDS: PIPERACILLIN /TAZOBACTAM 2.25 G in IV D5W 50 ML IV SCH ×3 (06:32→22:10)
--- NOTE | 2022-08-09 07:05 | NUR ---
MACHINIST BENCH OPENING NOTE: RECEIVED PT. IN BED, AOX3-4, ARMENIAN SPEAKING BUT CAN UNDERSTAND AND SPEAK SIMPLE DANISH. NO COMPLAINTS OF PAIN AT THIS TIME. PT. ON HIGH FLOW NASAL CANNULA AT 40 L/MIN; FIO2 - 100% AND NON-REBREATHER MASK AT 15 L/MIN. PT. HAS SOB AND ACCESSORY MUSCLE USE NOTED, SATURATING AT 97% AT THIS TIME. DOCUMENT CONTROL COORDINATOR READS AFIB CONTROLLED AT 85 BPM. ON ALBARADO CATH DRAINING CLOUDY YELLOW URINE VIA GRAVITY. SKIN INTACT. IV ACCESS ON L AC AND R FA, BOTH #20G, PATENT AND SALINE LOCKED; VICKY MIDLINE WITH DAVIDE-SYNEPHRINE RUNNING AT 1.5 MCG/KG/MIN AND AMIODARONE RUNNING AT 0.5 MG/MIN. IV DRESSINGS C/D/I WITH NO S/S OF INFILTRATION. SAFETY MEASURES IN PLACE: BED IN LOWEST AND LOCKED POSITION, HOB ELEVATED AT 30 DEGREES, BED ALARM ON, SIDE RAILS UP X3, CALL LIGHT WITHIN REACH. WILL ENCOURAGE FREQUENT REPOSITIONING IN BED AND CONTINUE TO MONITOR FOR ANY CHANGES.
[2022-08-09] MEDS: BLOOD SUGAR DIAGNOSTIC 1 EACH STRIP VI SCH ×4 (09:25→22:24)
[2022-08-09] MEDS: LEVOTHYROXINE SODIUM 50 MCG TABLET PO SCH (09:46)
[2022-08-09] MEDS: K PHOS NEUTRAL 250 MG TABLET PO SCH ×2 (09:46→17:47)
[2022-08-09] MEDS: PANTOPRAZOLE 40 MG TABLET.DR PO SCH (09:46)
[2022-08-09] MEDS: GABAPENTIN 100 MG CAPSULE PO SCH ×3 (09:46→17:47)
[2022-08-09] MEDS: Magnesium 1GM/D5W 100ML PREMIX 100 ML IV SCH ×3 (09:47→12:12)
[2022-08-09] MEDS ORDERED: BUMETANIDE INJ 8 MG in IV NS 0.9% 48 ML IV ONE (10:00)
[2022-08-09] MEDS: INSULIN GLARGINE, 100 UNIT/ML CARTRIDGE SQ SCH (10:17)
[2022-08-09] MEDS ORDERED: WARFARIN SODIUM 2 MG TABLET PO ONE (13:00)
[2022-08-09] MEDS: INSULIN REGULAR, HUMAN 100 UNIT/ML 3 ML VIAL SQ PRN ×2 (13:22→18:05)
[2022-08-09] MEDS: SOD FERRIC GLUC 125 MG in IV NS 0.9% 100 ML IV SCH (14:18)
[2022-08-09] MEDS: MONTELUKAST SODIUM (10MG) 10 MG TABLET PO SCH (17:46)
[2022-08-09] MEDS: ATORVASTATIN 40 MG TABLET PO SCH (17:47)
[2022-08-09] MEDS ORDERED: DIGOXIN INJ 0.5 MG/2 ML AMPUL IV ONE (18:00)
[2022-08-09 18:54] LABS: ABG BASE EXCESS -7.7 mmol/L; ABG OXYGEN SATURATION 93.1 % (92.0-98.5); ABG PCO2 35.4 mmHg (35.0-45.0); ABG PH 7.316 (7.350-7.450); ABG PO2 72.8 mmHg (75.0-100.0); AaDO2 604.8 mmHg; COHb 0.5 % (0.5-1.5); O2Hb 92.6 % (94.0-97.0); SITE, ABG Right Brachial; VENT MODE, BG HFNC 40L/100% + 15LPM NRB
[2022-08-09 18:54] LABS: ABG BASE EXCESS -5.4 mmol/L; ABG OXYGEN SATURATION 93.6 % (92.0-98.5); ABG PCO2 25.8 mmHg (35.0-45.0); ABG PH 7.442 (7.350-7.450); ABG PO2 68.3 mmHg (75.0-100.0); AaDO2 618.9 mmHg; COHb 0.4 % (0.5-1.5); MetHb 0.2 % (0.0-1.5); SITE, ABG Left Radial; VENT MODE, BG 40L 100% HFNC
--- NOTE | 2022-08-09 19:15 | NUR ---
GENERAL STUDIES PROGRAM CHAIR CLOSING NOTE: PT. REMAINS IN BED, AOX3-4, BAHAMIAN SPEAKING BUT CAN UNDERSTAND AND SPEAK SIMPLE YAKUT. COMPLAINED OF 3/10 ACHING BACK PAIN AT 1900. TYLENOL 650MG PO GIVEN. WILL ENDORSE TO PUBLIC SAFETY DISPATCHER RN TO REASSESS. PT. STILL ON HIGH FLOW NASAL CANNULA AT 40 L/MIN; FIO2 - 100% AND NON-REBREATHER MASK AT 15 L/MIN. STILL TACHYPNEIC AT 24 BPM, SATURATING AT 90% AT THIS TIME. RN PACU READS AFIB CONTROLLED AT 99 BPM. ALBARADO CATH DRAINED 500 ML CLOUDY YELLOW URINE THIS SHIFT. IV ACCESS ON L AC AND R FA, BOTH #20G, PATENT AND SALINE LOCKED; VICKY MIDLINE WITH DAVIDE-SYNEPHRINE RUNNING AT 1.5 MCG/KG/MIN. IV DRESSINGS C/D/I WITH NO S/S OF INFILTRATION. SAFETY MEASURES MAINTAINED: BED IN LOWEST AND LOCKED POSITION, HOB ELEVATED AT 30 DEGREES, BED ALARM ON, SIDE RAILS UP X3, CALL LIGHT WITHIN REACH. ENCOURAGED FREQUENT REPOSITIONING IN BED. ENDORSED CONTINUITY OF CARE TO PUBLIC SAFETY DISPATCHER RN.
[2022-08-09] MEDS: *INSULIN REGULAR(HUMULIN R)HUM 100 UNIT/ML VIAL SQ PRN (22:23)
[2022-08-10] VITALS (80 sets, daily range): BP systolic 67–154; BP diastolic 31–82
[2022-08-10] MEDS: VANCOMYCIN 1 GM in IV D5W 250 ML IV SCH (02:47)
[2022-08-10] MEDS: PHENYLEPHRINE 50 MG in IV NS 0.9% 245 ML IV PRN ×3 (02:47→21:06)
[2022-08-10] MEDS: K PHOS NEUTRAL 250 MG TABLET PO SCH (02:53)
[2022-08-10 05:36] LABS: BASOPHILS # (AUTO) 0.1 K/uL (0.0-0.2); BASOPHILS % (AUTO) 0.3 % (0.0-2.0); EOSINOPHILS % (AUTO) 1.1 % (0.0-6.0); HEMATOCRIT 30 % (33-45); LYMPHOCYTES # (AUTO) 1.1 K/uL (0.8-4.8); LYMPHOCYTES % (AUTO) 5.5 % (20.0-44.0); MEAN CORPUSCULAR HGB CONC 33 g/dl (31.0-36.0); MEAN CORPUSCULAR VOLUME 87 fL (82-100); MONOCYTES # (AUTO) 1.2 K/uL (0.1-1.30); MONOCYTES % (AUTO) 5.8 % (2.0-12.0); NEUTROPHILS # (AUTO) 17.4 K/uL (1.8-8.9); NEUTROPHILS % (AUTO) 87.3 % (43.0-81.0); PLATELET COUNT (AUTO) 288 K/uL (150-450); RED BLOOD CELL COUNT(AUTO) 3.48 MIL/uL (4.0-5.2)
[2022-08-10 05:43] LABS: ALANINE AMINOTRANSFERASE 29 U/L (12-78); ALKALINE PHOSPHATASE 130 U/L (46-116); ASPARTATE AMINOTRANSFERASE 79 U/L (15-37); BILIRUBIN,TOTAL 1.1 mg/dL (0.2-1.0); CALCIUM, SERUM 7.7 mg/dL (8.5-10.1); CARBON DIOXIDE 24 mmol/L (21-32); CHLORIDE 103 mmol/L (98-107); CREATININE 2.8 mg/dL (0.6-1.3); GLUCOSE 94 mg/dL (74-106); MAGNESIUM 2.8 mg/dL (1.8-2.4); PHOSPHORUS 5.7 mg/dL (2.5-4.9); POTASSIUM 4.7 mmol/L (3.5-5.1); SODIUM SERUM 136 mmol/L (136-145); TOTAL PROTEIN, SERUM 7.6 g/dL (6.4-8.2); UREA NITROGEN, BLOOD 55 mg/dL (7-18)
[2022-08-10] MEDS: PIPERACILLIN /TAZOBACTAM 2.25 G in IV D5W 50 ML IV SCH ×3 (06:16→21:44)
[2022-08-10 06:20] LABS: ALBUMIN 1.7 g/dL (3.4-5.0)
--- NOTE | 2022-08-10 07:20 | NUR ---
ANALYSIS OR RESEARCH SAFETY INSPECTOR OPENING NOTE: RECEIVED PT. IN BED, AOX3-4, TURKISH SPEAKING BUT CAN UNDERSTAND AND SPEAK SIMPLE KHMER. NO COMPLAINTS OF PAIN AT THIS TIME. PT. ON HIGH FLOW NASAL CANNULA AT 40 L/MIN; FIO2 - 100% AND NON-REBREATHER MASK AT 15 L/MIN. NO S/S OF RESPIRATORY DISTRESS, SATURATING AT 90% AT THIS TIME. OFFICE MACHINE REPAIR SHOP SUPERVISOR READS AFIB CONTROLLED AT 85 BPM. ON ALBARADO CATH DRAINING CLEAR YELLOW URINE VIA GRAVITY. SKIN INTACT. IV ACCESS ON L AC AND R FA, BOTH #20G, PATENT AND SALINE LOCKED; VICKY MIDLINE WITH DAVIDE-SYNEPHRINE RUNNING AT 1.5 MCG/KG/MIN. IV DRESSINGS C/D/I WITH NO S/S OF INFILTRATION. SAFETY MEASURES IN PLACE: BED IN LOWEST AND LOCKED POSITION, HOB ELEVATED AT 60 DEGREES, BED ALARM ON, SIDE RAILS UP X3, CALL LIGHT WITHIN REACH. WILL ENCOURAGE FREQUENT REPOSITIONING IN BED AT LEAST Q2H AND CONTINUE TO MONITOR FOR ANY CHANGES.
--- NOTE | 2022-08-10 09:05 | NUR ---
RN NOTE CVP READING RELAYED TO DR HERNANDEZ, NO NEW ORDERS WERE MADE. Addendum: 08/11/22 at 0825 by MARCELA FARR RN WRONG TIME DOCUMENTED.
[2022-08-10] MEDS: PANTOPRAZOLE 40 MG TABLET.DR PO SCH (09:35)
[2022-08-10] MEDS: LEVOTHYROXINE SODIUM 50 MCG TABLET PO SCH (09:35)
[2022-08-10] MEDS: AMIODARONE HCL 200 MG TABLET PO SCH ×2 (09:36→18:30)
[2022-08-10] MEDS: GABAPENTIN 100 MG CAPSULE PO SCH ×3 (09:36→18:30)
[2022-08-10] MEDS: INSULIN GLARGINE, 100 UNIT/ML CARTRIDGE SQ SCH (09:39)
--- NOTE | 2022-08-10 09:45 | NUR ---
GOLD MINER BLASTING NOTE: PT. WAS COUGHING FEW MINS AFTER GIVING MORNING MEDS. PT. VOMITED A SMALL AMOUNT OF CLEAR/GREEN FLUID, THEN CONTINUED COUGHING. BREAKFAST HELD. MADE AWARE. PT. SATURATING AT 94% AT THIS TIME. NO S/S OF RESPIRATORY DISTRESS. HOB ELEVATED AT 60 DEGREES. WILL CONTINUE TO MONITOR PT.'S AIRWAY AND BREATHING.
--- NOTE | 2022-08-10 09:46 | NUR ---
BOOK REPAIRER NOTE: PT. REFUSED TO TAKE ZOFRAN FOR VOMITING. DENIES FEELING NAUSEOUS. WILL CONTINUE TO MONITOR.
--- NOTE | 2022-08-10 10:20 | NUR ---
TOBACCO WETTER NOTE: LAB CALLED AT 1013 TO REPORT CRITICAL LAB VALUE OF TROPONIN I HIGH SENS - 80. PREVIOUS LAB VALUE WAS 34 ON 08/08. VALUE TRENDING UP. DR. HERNANDEZ NOTIFIED AT 1017. NO CHANGE/NEW ORDERS. WILL CONTINUE TO MONITOR PT.'S HEMODYNAMIC STATUS.
[2022-08-10] MEDS: BLOOD SUGAR DIAGNOSTIC 1 EACH STRIP VI SCH ×4 (10:30→23:25)
[2022-08-10] MEDS ORDERED: ONDANSETRON HCL/PF 4 MG/2 ML VIAL IV PRN (11:30)
[2022-08-10] MEDS: SOD FERRIC GLUC 125 MG in IV NS 0.9% 100 ML IV SCH (14:37)
[2022-08-10] MEDS: methylPREDNISolone SOD SUCC 125 MG/2ML VIAL IV SCH ×2 (14:48→21:43)
[2022-08-10] MEDS: ACETAMINOPHEN 325 MG TABLET PO PRN (15:35)
--- NOTE | 2022-08-10 16:40 | NUR ---
HUMAN RESOURCE ADVISER NOTE: PT. COMPLAINED OF 3/10 STOMACH PAIN AT 1530, TYLENOL 650MG PO GIVEN AT 1535. PT. VERBALIZED PAIN RELIEF NOW. WILL CONTINUE TO MONITOR PT.'S PAIN.
--- NOTE | 2022-08-10 17:30 | NUR ---
NUTRITION TEACHER NOTE: COUMADIN HELD TODAY PER DR. WALSH'S ORDER DUE TO INR OF 3.76. NO S/S OF BLEEDING NOTED. WILL CONTINUE TO MONITOR FOR S/S OF BLEEDING.
[2022-08-10] MEDS: ATORVASTATIN 40 MG TABLET PO SCH (18:30)
[2022-08-10] MEDS: MONTELUKAST SODIUM (10MG) 10 MG TABLET PO SCH (18:30)
--- NOTE | 2022-08-10 18:30 | NUR ---
ELECTRONIC ENGRAVER NOTE: DR. HERNANDEZ ORDERED PICC LINE AND CVP READING. WAITING FOR PICC LINE RN.
--- NOTE | 2022-08-10 19:05 | NUR ---
TECHNICAL SERVICES CONSULTANT CLOSING NOTE: PT. REMAINS IN BED, AOX3-4, FAROESE SPEAKING BUT CAN UNDERSTAND AND SPEAK SIMPLE ZAMBIAN. NO COMPLAINTS OF PAIN AT THIS TIME. PT. STILL ON HIGH FLOW NASAL CANNULA AT 40 L/MIN; FIO2 - 100% AND NON-REBREATHER MASK AT 15 L/MIN. NO S/S OF RESPIRATORY DISTRESS, SATURATING AT 95% AT THIS TIME. MIDDLE OR INTERMEDIATE SCHOOL PRINCIPAL READS AFIB CONTROLLED AT 85 BPM. ON ALBARADO CATH DRAINED 950 ML CLEAR YELLOW URINE THIS SHIFT. SKIN INTACT. IV ACCESS ON L AC AND R FA, BOTH #20G, PATENT AND SALINE LOCKED; VICKY MIDLINE WITH DAVIDE-SYNEPHRINE RUNNING AT 1 MCG/KG/MIN. WAITING FOR PICC LINE INSERTION FOR CVP READING. IV DRESSINGS C/D/I WITH NO S/S OF INFILTRATION. PT. DIDN'T EAT THE WHOLE SHIFT, JUST HAD MILK FOR DINNER. NO INSULIN COVERAGE THIS SHIFT. PT. DESATURATES WHEN OFF NON-REBREATHER MASK. DR. WALSH AWARE. 1 LARGE DIARRHEA STOOL THIS SHIFT. SAFETY MEASURES MAINTAINED: BED IN LOWEST AND LOCKED POSITION, HOB ELEVATED AT 60 DEGREES, BED ALARM ON, SIDE RAILS UP X3, CALL LIGHT WITHIN REACH. ENCOURAGED FREQUENT REPOSITIONING IN BED AT LEAST Q2H. ENDORSED CONTINUITY OF CARE TO STRATEGIC ACCOUNTS MANAGER RN.
--- NOTE | 2022-08-10 20:15 | NUR ---
RN NOTE PT AOX3. ON HFNC 40L 100% WITH NONREBREATHER AT 15L. NOT IN ANY DISTRESS. PT DENIES ANY PAIN OR SOB. RECEIVED ON NEOSYNEPHRINE AT 1MCG/KG/MIN. EBRENICE PICC INSERTED BY PICC LINE NURSE, AND REMOVED VICKY ML. ALBARADO CATH DRAINING BY GRAVITY. WILL CONTINUE TO MONITOR.
--- NOTE | 2022-08-10 21:05 | NUR ---
RN NOTE CVP READING=[address] HERNANDEZ. NO NEW ORDER WERE MADE.
[2022-08-10] MEDS: *INSULIN REGULAR(HUMULIN R)HUM 100 UNIT/ML VIAL SQ PRN (23:28)
[2022-08-11] VITALS (67 sets, daily range): BP systolic 97–135; BP diastolic 29–90
[2022-08-11 05:28] LABS: BASOPHILS % (AUTO) 0.1 % (0.0-2.0); EOSINOPHILS % (AUTO) 0.1 % (0.0-6.0); HEMATOCRIT 32 % (33-45); HEMOGLOBIN 10.4 g/dL (11.5-14.8); LYMPHOCYTES # (AUTO) 0.6 K/uL (0.8-4.8); LYMPHOCYTES % (AUTO) 4.2 % (20.0-44.0); MEAN CORPUSCULAR HGB CONC 33 g/dl (31.0-36.0); MEAN CORPUSCULAR VOLUME 87 fL (82-100); MONOCYTES # (AUTO) 0.3 K/uL (0.1-1.30); MONOCYTES % (AUTO) 2.4 % (2.0-12.0); NEUTROPHILS # (AUTO) 13.4 K/uL (1.8-8.9); NEUTROPHILS % (AUTO) 93.2 % (43.0-81.0); PLATELET COUNT (AUTO) 291 K/uL (150-450); RED BLOOD CELL COUNT(AUTO) 3.68 MIL/uL (4.0-5.2); WHITE BLOOD COUNT (AUTO) 14.4 K/uL (4.3-11.0)
[2022-08-11] MEDS: PIPERACILLIN /TAZOBACTAM 2.25 G in IV D5W 50 ML IV SCH ×3 (05:34→21:11)
[2022-08-11] MEDS: methylPREDNISolone SOD SUCC 125 MG/2ML VIAL IV SCH ×3 (05:35→21:11)
[2022-08-11 05:39] LABS: CARBON DIOXIDE 18 mmol/L (21-32); CHLORIDE 106 mmol/L (98-107); CREATININE 2.9 mg/dL (0.6-1.3); GLUCOSE 223 mg/dL (74-106); POTASSIUM 3.5 mmol/L (3.5-5.1); SODIUM SERUM 141 mmol/L (136-145)
[2022-08-11 06:13] LABS: UREA NITROGEN, BLOOD 80 mg/dL (7-18)
--- NOTE | 2022-08-11 07:10 | NUR ---
RN NOTE PT CONTINUE WITH HFNC WITH NONREBREATHER, NO SIGNS OF DISTRESS NOTED. O2 SAT AT 97%/ PT ABLE TO MAKE NEEDS KNOWN, DENIES PAIN OR SOB. REMAIN AFEBRILE. FC WITH 700ML URINE OUTPUT.
--- NOTE | 2022-08-11 07:15 | NUR ---
RN NOTE CRITICAL LAB VALUE REPORTED TO DR WALSH, BUN 80, INR 7.23. WITH ORDER TO GIVE NS 500ML BOLUS. ORDER NOTED AND CARRIED OUT. ENDORSED TO AM SHIFT NURSE.
[2022-08-11] MEDS ORDERED: IV NS 0.9% 500 ML BAG IV ONE ×2 (07:30→09:30)
[2022-08-11] MEDS: BLOOD SUGAR DIAGNOSTIC 1 EACH STRIP VI SCH ×4 (07:30→21:27)
[2022-08-11] MEDS: LEVOTHYROXINE SODIUM 50 MCG TABLET PO SCH (07:32)
[2022-08-11] MEDS: PANTOPRAZOLE 40 MG TABLET.DR PO SCH ×2 (07:32→21:11)
[2022-08-11] MEDS: INSULIN REGULAR, HUMAN 100 UNIT/ML 3 ML VIAL SQ PRN ×3 (07:36→17:10)
[2022-08-11] MEDS: AMIODARONE HCL 200 MG TABLET PO SCH ×2 (08:10→16:05)
[2022-08-11] MEDS: GABAPENTIN 100 MG CAPSULE PO SCH ×3 (08:10→16:05)
[2022-08-11] MEDS ORDERED: INSULIN GLARGINE, 100 UNIT/ML CARTRIDGE SQ SCH (09:00)
[2022-08-11] MEDS ORDERED: IV NS 0.9% 500 ML IV ONE (10:00)
[2022-08-11] MEDS: ACETAMINOPHEN 325 MG TABLET PO PRN ×2 (10:26→15:54)
[2022-08-11 11:37] LABS: ABG BASE EXCESS -8.4 mmol/L; ABG OXYGEN SATURATION 91.3 % (92.0-98.5); ABG PCO2 31.1 mmHg (35.0-45.0); ABG PH 7.337 (7.350-7.450); ABG PO2 67.3 mmHg (75.0-100.0); AaDO2 614.6 mmHg; COHb 0.1 % (0.5-1.5); MetHb 0.1 % (0.0-1.5); O2Hb 91.1 % (94.0-97.0); SITE, ABG Right Brachial; VENT MODE, BG high flow 100% / 40 L
[2022-08-11] MEDS: VANCOMYCIN 1 GM in IV D5W 250 ML IV SCH (13:36)
[2022-08-11] MEDS: DOXYCYCLINE 100 MG in IV D5W 100 ML IV SCH ×2 (13:40→21:58)
[2022-08-11] MEDS: SOD FERRIC GLUC 125 MG in IV NS 0.9% 100 ML IV SCH (14:59)
[2022-08-11] MEDS ORDERED: MAG HYDROX/AL HYDROX/SIMETH 30 ML UDC PO PRN (17:00)
[2022-08-11] MEDS: MONTELUKAST SODIUM (10MG) 10 MG TABLET PO SCH (17:16)
[2022-08-11] MEDS: ATORVASTATIN 40 MG TABLET PO SCH (17:16)
--- NOTE | 2022-08-11 18:39 | NUR ---
RN CLOSING NOTE PT IS RESTING IN BED, PT IS A/O X 4, PT ON ORDERED HFNC SETTINGS AND NON REBREATHER 10L. TOLERATING WELL SATING BETWEEN 95-98%. TELE READS CONTROLLED A FIB. HR IN 80'S. ALBARADO DRAINING WELL, 645 ML OUTPUT DURING SHIFT. IV ACCESS ON BERENICE PICC AND LAC 20G. NO FLUIDS RUNNING AT THIS TIME. ALL SAFETY MEASURES IN PLACE, WILL ENDORSE TO BUSINESS CONTINUITY MANAGER NURSE FOR NALDO.
--- NOTE | 2022-08-11 19:30 | NUR ---
RN NOTE RECEIVED PT SLEEPING, AROUSES EASILY. AOX3. ON HFNC 40L 100% WITH NONREBREATHER AT 15L. NOT IN ANY DISTRESS. PT DENIES ANY SOB. MILD STOMACH PAIN, WAS JUST GIVE MAALOX. HAVE BM. ALBARADO DRAINING URINE BY GRAVITY. CARE RENDERED, WILL CONTINUE TO MONITOR.
[2022-08-12] VITALS (27 sets, daily range): BP systolic 93–122; BP diastolic 21–71
[2022-08-12 05:13] LABS: BASOPHILS % (AUTO) 0.2 % (0.0-2.0); HEMATOCRIT 30 % (33-45); HEMOGLOBIN 9.8 g/dL (11.5-14.8); LYMPHOCYTES # (AUTO) 0.6 K/uL (0.8-4.8); MEAN CORPUSCULAR HGB CONC 33 g/dl (31.0-36.0); MEAN CORPUSCULAR VOLUME 87 fL (82-100); MONOCYTES # (AUTO) 0.7 K/uL (0.1-1.30); MONOCYTES % (AUTO) 3.4 % (2.0-12.0); NEUTROPHILS # (AUTO) 19.2 K/uL (1.8-8.9); NEUTROPHILS % (AUTO) 93.4 % (43.0-81.0); PLATELET COUNT (AUTO) 306 K/uL (150-450); RED BLOOD CELL COUNT(AUTO) 3.47 MIL/uL (4.0-5.2); WHITE BLOOD COUNT (AUTO) 20.6 K/uL (4.3-11.0)
[2022-08-12] MEDS: PIPERACILLIN /TAZOBACTAM 2.25 G in IV D5W 50 ML IV SCH ×3 (05:20→20:10)
[2022-08-12] MEDS: methylPREDNISolone SOD SUCC 125 MG/2ML VIAL IV SCH ×3 (05:21→21:01)
[2022-08-12 05:33] LABS: ALANINE AMINOTRANSFERASE 26 U/L (12-78); ALBUMIN 1.6 g/dL (3.4-5.0); ALKALINE PHOSPHATASE 155 U/L (46-116); ASPARTATE AMINOTRANSFERASE 53 U/L (15-37); BILIRUBIN,TOTAL 0.7 mg/dL (0.2-1.0); CALCIUM, SERUM 7.5 mg/dL (8.5-10.1); CARBON DIOXIDE 21 mmol/L (21-32); CHLORIDE 106 mmol/L (98-107); GLUCOSE 158 mg/dL (74-106); POTASSIUM 3.3 mmol/L (3.5-5.1); SODIUM SERUM 140 mmol/L (136-145); TOTAL PROTEIN, SERUM 6.9 g/dL (6.4-8.2)
[2022-08-12 06:30] LABS: UREA NITROGEN, BLOOD 94 mg/dL (7-18)
[2022-08-12] MEDS ORDERED: IV NS 0.9% 1,000 ML IV PRN (07:00)
--- NOTE | 2022-08-12 07:15 | NUR ---
RN NOTE CRITICAL LAB INR [address] WALSH. WITH NEW ORDER TO GIVE VIT K 5MG IVP AND NS AT 75ML/HR. ALSO REPORTED TO MD PT WAS DIZZY AND VOMITED ONCE. AND PT FEELS WEAK. VS STABLE. NO SIGNS OF DISTRESS. NO CHANGES IN LOC NOTED. PT ABLE TO MAKE NEEDS KNOWN. CVP READING IS 6. ENDORSED TO AM SHIFT NURSE FOR NALDO.
--- NOTE | 2022-08-12 07:45 | NUR ---
RN OPENING PT RECEIVED ALERT AND AWAKE X3 ABLE TO MAKE NEEDS KNOWN SPEECH IS UNCLEAR. FACE IS EQUAL ON BOTH SIDES, BILATERAL STRENGTH ASSESSED IN UPPER AND LOWER EXTREMITIES WEAK BUT PRESENT AND EQUAL ON BOTH SIDES. BEDSIDE MONITOR SHOWS AFIB, PT IS NORMOTENSIVE CVP ZERO'ED AND SHOWS 7, REPORTED TO DR. HERNANDEZ. NS RUNNING AT 75ML/H MONITORING BUN AND CREATININE MORNING LABS SHOW THEM TO BE ELEVATED. INR OF 10 INDORSED FROM MACHINE SETTER SUPERVISOR VIT K ORDERED WILL BE ADMINISTERING TO NORMALIZE INR. PLURAL EFFUSION FOUND OF CHEST X-RAY PT KEPT 90 DEGREES TO INCREASE GAS EXCHANGE. Addendum: 08/12/22 at 0938 by AUSTIN WICK RN PT CHANGED TO HI FLOW O2 100% FIO2, 40L
[2022-08-12] MEDS: PHYTONADIONE INJ 10 MG/1 ML AMPUL IV ONE ×2 (08:02→08:33)
[2022-08-12] MEDS: BLOOD SUGAR DIAGNOSTIC 1 EACH STRIP VI SCH ×4 (08:03→21:39)
[2022-08-12] MEDS: LEVOTHYROXINE SODIUM 50 MCG TABLET PO SCH (08:03)
[2022-08-12] MEDS: PANTOPRAZOLE 40 MG TABLET.DR PO SCH ×2 (08:33→21:01)
[2022-08-12] MEDS: AMIODARONE HCL 200 MG TABLET PO SCH ×2 (08:33→17:23)
[2022-08-12] MEDS: GABAPENTIN 100 MG CAPSULE PO SCH ×3 (08:33→17:23)
[2022-08-12] MEDS: *INSULIN REGULAR(HUMULIN R)HUM 100 UNIT/ML VIAL SQ PRN ×2 (08:35→21:42)
[2022-08-12] MEDS: INSULIN GLARGINE, 100 UNIT/ML CARTRIDGE SQ SCH (08:37)
[2022-08-12] MEDS: DOXYCYCLINE 100 MG in IV D5W 100 ML IV SCH ×2 (09:15→21:01)
[2022-08-12] MEDS: INSULIN REGULAR, HUMAN 100 UNIT/ML 3 ML VIAL SQ PRN ×2 (14:05→18:15)
[2022-08-12] MEDS: SOD FERRIC GLUC 125 MG in IV NS 0.9% 100 ML IV SCH (15:21)
[2022-08-12] MEDS: MONTELUKAST SODIUM (10MG) 10 MG TABLET PO SCH (17:23)
--- NOTE | 2022-08-12 18:42 | NUR ---
RN CLOSING PT AWAKE AND ALERT X3 SETSWANA SPEAKING FAMILY IN THE ROOM. PT ON DOUBLE SET UP NON-REBREATHER AND HI FLOW NC SATING 92% NO S/S OF ACUTE RESPIRATORY DISTRESS BREATHING IS EVEN AND UNLABORED. BEDSIDE MONITOR SHOWS CONTROLLED AFIB HR 84 CVP READS 3 ON THE MONITOR. PT IS NORMOTENSIVE ALBARADO OUTPUT WAS 300ML. SPOKE WITH PT'S SON REGARDING HEMODIALYSIS CATHETER PLACEMENT AND BEGINNING HEMODIALYSIS CONSENT AQURIRED OVER THE PHONE AND CONFIRMED WITH SON RADHA. NS @75ML/HR RUNNING THROUGH PICCLINE NO S/S OF INFILTRATION DRESSING IS CLEAN AND DRY. HOB ELEVATED BED LOCKED AND IN LOWEST POSITION
--- NOTE | 2022-08-12 19:05 | NUR ---
RN OPENING NOTE RECEIVED PT IN BED, A/O X 2-3. ON NON REBREATHER MASK @15L AND HI FLOW 40L, TOLERATING WELL NO S/S OF ACUTE DISTRESS, SATURATION >88%. BEDSIDE MONITOR SHOWS AFIB. IV ACCESS BERENICE PICC RUNNING NS@75ML/HR, AND LAC #20G, INTACT AND PATENT. CVP READING WAS 7 AFTER ZERO'D. FAMILY AT BEDSIDE. PT ABLE TO MAKE NEEDS KNOWN IN YAKUT. SAFETY MEASURES IN PLACE: BED IN LOWEST AND LOCKED POSITION, HOB ELEVATED AT 75 DEGREES, BED ALARM ON, SIDE RAILS UP X3, CALL LIGHT WITHIN REACH. WILL ENCOURAGE FREQUENT REPOSITIONING IN BED AND CONTINUE TO MONITOR FOR ANY CHANGES.
--- NOTE | 2022-08-12 23:15 | NUR ---
RN NOTE RIGHT FEMORAL ARTERY DIALYSIS PORT WAS INSERTED BY VENESSA ENCARNACION.
[2022-08-13] VITALS (62 sets, daily range): BP systolic 53–136; BP diastolic 20–93
[2022-08-13] MEDS: VANCOMYCIN 1 GM in IV D5W 250 ML IV SCH ×2 (00:23→01:00)
--- NOTE | 2022-08-13 01:49 | NUR ---
RN NOTE CALLED LAB FOR ENEIDA VALDES, LAB WILL CALL BACK
--- NOTE | 2022-08-13 02:15 | NUR ---
RN NOTE VANCO HELD DUE TO TROUGH LEVEL OF 27
--- NOTE | 2022-08-13 05:12 | NUR ---
RN NOTE WAITING FOR CHARGE TO MIX MEDICATION NEOSYNEPHRINE
[2022-08-13] MEDS: PIPERACILLIN /TAZOBACTAM 2.25 G in IV D5W 50 ML IV SCH ×3 (05:31→20:22)
[2022-08-13] MEDS: methylPREDNISolone SOD SUCC 125 MG/2ML VIAL IV SCH ×3 (05:31→20:22)
[2022-08-13] MEDS ORDERED: PHENYLEPHRINE 10 MG/ML VIAL ONE (05:48)
[2022-08-13 05:49] LABS: CALCIUM, SERUM 7.6 mg/dL (8.5-10.1); CARBON DIOXIDE 19 mmol/L (21-32); CHLORIDE 107 mmol/L (98-107); CREATININE 3.8 mg/dL (0.6-1.3); GLUCOSE 58 mg/dL (74-106); POTASSIUM 3.7 mmol/L (3.5-5.1); SODIUM SERUM 141 mmol/L (136-145)
[2022-08-13] MEDS: PHENYLEPHRINE 50 MG in IV NS 0.9% 245 ML IV PRN ×2 (06:08→19:33)
[2022-08-13 06:23] LABS: UREA NITROGEN, BLOOD 112 mg/dL (7-18)
--- NOTE | 2022-08-13 06:50 | NUR ---
RN NOTE WILL ENDORSE CRITICAL BUN 112 AND INR 7.14 TO MORNING SHIFT
--- NOTE | 2022-08-13 07:07 | NUR ---
RN CLOSING NOTE PT IN BED, A/O X 2-3. ON NON REBREATHER MASK @15L AND HI FLOW 40L, SATURATION 86%. BEDSIDE MONITOR SHOWS AFIB. IV ACCESS BERENICE PICC RUNNING NEOSYNEPHRINE 0.5MCG/KG/ML, AND LAC #20G, INTACT AND PATENT. CVP READING WAS 5.ALBARADO OUTPUT WAS 125ML. PT JUST HAD ABG DRAWN. WILL ENDORSE RESULTS TO MORNING SHIFT. PT ABLE TO MAKE NEEDS KNOWN IN [place]. SAFETY MEASURES IN PLACE: BED IN LOWEST AND LOCKED POSITION, HOB ELEVATED AT 75 DEGREES, BED ALARM ON, SIDE RAILS UP X3, CALL LIGHT WITHIN REACH. WILL ENDORSE TO MORNING SHIFT FOR NALDO.
[2022-08-13] MEDS: LEVOTHYROXINE SODIUM 50 MCG TABLET PO SCH (07:30)
--- NOTE | 2022-08-13 07:52 | NUR ---
ARTEMIO DON IN ROOM TO START HEMODIALYSIS
--- NOTE | 2022-08-13 08:07 | NUR ---
PT IN BED A/0 X3 WEAK AND SHORT OF BREATH BREATHING IS SHALLOW AND LABORED. ON A DOUBLE SET UP 15L NONREBREATHER AND HI FLOW NASAL CANULA SAT 82% MD AWARE STARTED ON DAVIDE RUNNING AT 0.5 BP 113/42 HR 86. NEW FEMORAL HD CATH PATENT BEING USED FOR DIALYSIS CURRENTLY. PICC LINE IN PLACE RUNNING MAINTANCE FLUIDS RUNNING AT 75ML/HR NO S/S OF INFILTRATION, DRESSING CLEAN AND INTACT. ALBARADO CATHETER IN PLACE AND DRAINING YELLOW URINE. HOB ELEVATED TO 55 DEGREES BED LOCKED
[2022-08-13] MEDS: BLOOD SUGAR DIAGNOSTIC 1 EACH STRIP VI SCH ×4 (08:25→22:01)
[2022-08-13] MEDS ORDERED: PHYTONADIONE INJ 10 MG/1 ML AMPUL SQ ONE (08:30)
--- NOTE | 2022-08-13 08:45 | NUR ---
PT PUT ON BIPAP PER DR. WALSH FOR O2 SATS IN THE LOW 80'S ABG FROM 0640 SHOWS HYPOXIA AND ACIDOSIS. RAPID IS NEGATIVE PCR IS STILL PEDING DR CANALES AWARE.
[2022-08-13] MEDS: INSULIN GLARGINE, 100 UNIT/ML CARTRIDGE SQ SCH (09:00)
[2022-08-13] MEDS: PANTOPRAZOLE 40 MG TABLET.DR PO SCH ×2 (09:00→20:22)
[2022-08-13] MEDS: AMIODARONE HCL 200 MG TABLET PO SCH ×2 (09:00→17:43)
--- NOTE | 2022-08-13 10:15 | NUR ---
DR WALSH AND DR. HERNANDEZ NOTFIED OF PTS NPO STATUS PANTOPRAZOL TO BE CHANGED TO IV SINGULAIR AND AMIODARONE TO BE HELD PER DOCTORS ORDERS.
[2022-08-13 10:29] LABS: ABG BASE EXCESS -4.8 mmol/L; ABG OXYGEN SATURATION 88.2 % (92.0-98.5); ABG PCO2 49.5 mmHg (35.0-45.0); ABG PO2 60.1 mmHg (75.0-100.0); AaDO2 603.4 mmHg; COHb 0.2 % (0.5-1.5); MetHb 0.2 % (0.0-1.5); O2Hb 87.8 % (94.0-97.0); SITE, ABG Left Radial; VENT MODE, BG ST 20/8 16 100%
[2022-08-13] MEDS: DOXYCYCLINE 100 MG in IV D5W 100 ML IV SCH ×2 (10:32→21:02)
--- NOTE | 2022-08-13 11:01 | NUR ---
PERSON TO CONTACT REMBER (SON) [phone] DION (DAUGHTER) [phone]
--- NOTE | 2022-08-13 12:15 | NUR ---
rt note patient intubated by dr. de la rosa with 7.0ett @22cm at the lip line, tube secured and patent. equal bilateral chest rise with color change on co2 detector. vent alarms on and audible. plugged in red outlets. bvm bedside. will continue to monitor.
[2022-08-13] MEDS: PROPOFOL 100 ML IV PRN ×2 (12:30→22:40)
[2022-08-13 13:31] LABS: ABG BASE EXCESS -7.5 mmol/L; ABG OXYGEN SATURATION 92.1 % (92.0-98.5); ABG PCO2 52.2 mmHg (35.0-45.0); ABG PH 7.211 (7.350-7.450); ABG PO2 75.4 mmHg (75.0-100.0); AaDO2 440.2 mmHg; COHb 0.6 % (0.5-1.5); MetHb 0.1 % (0.0-1.5); O2Hb 91.5 % (94.0-97.0); SITE, ABG Right Radial
[2022-08-13] MEDS: SOD FERRIC GLUC 125 MG in IV NS 0.9% 100 ML IV SCH (14:00)
[2022-08-13] MEDS ORDERED: ETOMIDATE 2 MG/ML VIAL IV ONE (14:41)
[2022-08-13] MEDS ORDERED: ROCURONIUM BROMIDE 50 MG/5 ML IV ONE (14:41)
[2022-08-13] MEDS: MONTELUKAST SODIUM (10MG) 10 MG TABLET PO SCH (17:44)
--- NOTE | 2022-08-13 19:54 | NUR ---
RN CLOSING PT WAS INTUBATED TODAY @1211 PT NOW SEDATED ON PROPFOL @25MCG/KG/MIN NO S/S OF RESPIRATORY DISTRESS. PICC LINE IS PATENT AND TKO RUNNING AT 10ML/HR DRESSING IS CLEAN AND DRY, HD CATH IN PLACE AND DRESSED NO S/S OF GROSS BLEEDING. OG TUBE PLACE ALONG WITH INTUBATION GASTRIC CONTENT ASPIRATED AND XRAY CONFIRMED PACEMENT OF OG TUBE AND INTUBATION TUBE. PT CONTUNES TO RUN DAVIDE DOSE RATE OF 0.8 BAG CHANGED AT SHIFT CHANGE. PM CARE GIVEN 1 BM AND 20ML OF URINE OUTPUT. RESTRAINS ON BILATERALLY CIRCULATION CHECHED +1 ON BOTH SIDE HANDS ARE COLD INDORSED TO NEXT SHIFT. WARM BLANKETS APPLIES FOR WARMTH. HEMODIALYSIS DONE TODAY 351ML REMOVED DURING DIALYSIS. CVP READING 9 CURRENT MONITORING DEVICE WAS ZEROED AT SHIFT CHANGE BED LOCKED
--- NOTE | 2022-08-13 20:20 | NUR ---
RT Pt received orally intubated w/ 7.0 ETT secured at 22cm at the lip line on [facility] vent on settings AC mode, rate 26, VT 500, FIO2 90%, PEEP +5. Airway patent and secured. PSYCH RN done. Pt suctioned. Alarms set and audible. Vent plugged into red outlet. Ambubag at bedside. Will cont to monitor. Addendum: 08/14/22 at 0234 by LEXI COELLO RT Amended: Links added.
--- NOTE | 2022-08-13 21:08 | NUR ---
RT FIO2 increased from 90% to 100% due to SpO2 86%. RN notified. Addendum: 08/13/22 at 2348 by LEXI COELLO RT Amended: Links added.
--- NOTE | 2022-08-13 21:10 | NUR ---
RN/ICU- PT. HR ON THE 40'S, BP-113/30, ON DAVIDE SYNEPHRINE DRIP AT 0.8 MCG/KG/MIN. DR. WALSH WAS NOTIFIED BY PHONE W/ RBTO TO START LEVOPHED DRIP AND WEAN DAVIDE SYNEPHRINE DRIP TOLERATED. WILL TITRATE TO KEEP SBP TO 90 PER PROTOCOL.
[2022-08-13] MEDS ORDERED: NOREPINEPHRINE 4 MG/4 ML AMPUL IV ONE (21:20)
[2022-08-13] MEDS: NOREPINEPHRINE 32 MG in IV NS 0.9% 218 ML IV PRN (21:27)
[2022-08-13] MEDS: *INSULIN REGULAR(HUMULIN R)HUM 100 UNIT/ML VIAL SQ PRN (22:04)
[2022-08-14] VITALS (69 sets, daily range): BP systolic 82–163; BP diastolic 34–76
[2022-08-14] MEDS ORDERED: VANCOMYCIN 1 GM in IV D5W 250 ML IV SCH ×2 (01:00→13:00)
--- NOTE | 2022-08-14 01:10 | NUR ---
RN NOTE VANCO WITHHELD, PT VANCO TROUGH IS 21.
[2022-08-14 04:17] LABS: HEMATOCRIT 29 % (33-45); LYMPHOCYTES # (AUTO) 0.6 K/uL (0.8-4.8); LYMPHOCYTES % (AUTO) 2.5 % (20.0-44.0); MEAN CORPUSCULAR HGB CONC 32 g/dl (31.0-36.0); MEAN CORPUSCULAR VOLUME 87 fL (82-100); MONOCYTES # (AUTO) 0.8 K/uL (0.1-1.30); MONOCYTES % (AUTO) 3.4 % (2.0-12.0); NEUTROPHILS # (AUTO) 22.4 K/uL (1.8-8.9); NEUTROPHILS % (AUTO) 94.1 % (43.0-81.0); PLATELET COUNT (AUTO) 275 K/uL (150-450); RED BLOOD CELL COUNT(AUTO) 3.26 MIL/uL (4.0-5.2); WHITE BLOOD COUNT (AUTO) 23.8 K/uL (4.3-11.0)
[2022-08-14 04:34] LABS: CALCIUM, SERUM 9.7 mg/dL (8.5-10.1); CARBON DIOXIDE 20 mmol/L (21-32); CHLORIDE 106 mmol/L (98-107); CREATININE 3.6 mg/dL (0.6-1.3); GLUCOSE 179 mg/dL (74-106); POTASSIUM 3.8 mmol/L (3.5-5.1); SODIUM SERUM 140 mmol/L (136-145)
[2022-08-14 04:35] LABS: UREA NITROGEN, BLOOD 85 mg/dL (7-18)
[2022-08-14] MEDS: PIPERACILLIN /TAZOBACTAM 2.25 G in IV D5W 50 ML IV SCH ×3 (05:00→20:45)
[2022-08-14] MEDS: methylPREDNISolone SOD SUCC 125 MG/2ML VIAL IV SCH ×3 (05:01→20:44)
--- NOTE | 2022-08-14 05:02 | NUR ---
RT FIO2 titrate from 100% to 90% due to SpO2 97% Addendum: 08/14/22 at 0510 by LEXI COELLO RT Amended: Links added.
--- NOTE | 2022-08-14 07:30 | NUR ---
ICU/RN PT IS INTUBATED ON THE VENT AC MODE,FIO2-90%,SAT O2-96%.SEDATED WITH DIPRIVAN .ON LEVOPHED DRIP..AFEBRILE.RESPONSIVE ON PAIN STIMULATION.CVP-7.RIGHT UPPER ARM PICC LINE.F/C IN PLACE NO URINE OUTPUT.PT IS ANURIC. RIGHT FEMORAL HD CATHETER .OG TUBE CLAMPED.LABS REVIEW. NOTIFIED. DR HERNANDEZ SEEN THE PT. NEW ORDERS RECEIVED.
[2022-08-14 07:52] LABS: ABG PCO2 40.5 mmHg (35.0-45.0); ABG PH 7.255 (7.350-7.450); ABG PO2 62.6 mmHg (75.0-100.0); AaDO2 537.6 mmHg; COHb 0.9 % (0.5-1.5); MetHb 0.1 % (0.0-1.5); O2Hb 88.1 % (94.0-97.0); SITE, ABG Left Radial
[2022-08-14] MEDS: PROPOFOL 100 ML IV PRN ×2 (08:05→18:13)
[2022-08-14] MEDS: BLOOD SUGAR DIAGNOSTIC 1 EACH STRIP VI SCH ×2 (08:17→11:18)
[2022-08-14] MEDS: LEVOTHYROXINE SODIUM 50 MCG TABLET PO SCH (08:18)
[2022-08-14] MEDS: DOXYCYCLINE 100 MG in IV D5W 100 ML IV SCH ×2 (08:18→21:25)
[2022-08-14] MEDS: PANTOPRAZOLE 40 MG TABLET.DR PO SCH ×2 (08:18→20:45)
[2022-08-14] MEDS: AMIODARONE HCL 200 MG TABLET PO SCH ×2 (08:18→17:00)
--- NOTE | 2022-08-14 08:50 | NUR ---
RT PER JAYJAY SEE ORDERED TO TITRATE PEEP TO 10 BASED ON BLOOD GAS RESULT Addendum: 08/14/22 at 1641 by RUPERTO ART RT Amended: Links added.
[2022-08-14] MEDS ORDERED: HEPARIN SODIUM, PORCINE 5000 UNITS/1 ML VIAL IV ONE (09:00)
[2022-08-14] MEDS ORDERED: NEPRO 1,000 ML BOTTLE GT PRN (09:00)
--- NOTE | 2022-08-14 09:00 | NUR ---
ICU/RN DUE MEDS ARE GIVEN ORDERED.ABG DONE.DR RO SEEN THE PT. PEEP INCREASED TO 10.FIO2-90%.SEDATION VACATION NOT PROVIDED.PT IS UNSTABLE.ON LEVOPHED DRIP. HEPARIN DRIP ORDERED.APTT ORDERED.
[2022-08-14] MEDS: INSULIN GLARGINE, 100 UNIT/ML CARTRIDGE SQ SCH (09:24)
[2022-08-14] MEDS: HEPARIN INFUSION/D5W 500 ML IV PRN (09:58)
--- NOTE | 2022-08-14 09:59 | NUR ---
ICU.RN HEPARIN DRIP STARTED AT 1250 UNITS. NO BOLUS GIVEN. APTT-62.5.
--- NOTE | 2022-08-14 11:00 | NUR ---
ICU/JEWEL HOLE ROUGH OPENER AT BED SIDE.ALL BELONGING SENT TO THE FAMILY.ONLY CELL PHONE AND CRUSHER ASSEMBLER AT BEDSIDE.CONTINUE MONITORING.OG TUBE FEEDING STARTED ORDERED.
[2022-08-14] MEDS: *INSULIN REGULAR(HUMULIN R)HUM 100 UNIT/ML VIAL SQ PRN (12:20)
--- NOTE | 2022-08-14 13:51 | NUR ---
ICU/RN HD STARTED.HD NURSE AT BEDSIDE.
[2022-08-14] MEDS: VANCOMYCIN POST DIALYSIS 500MG IV PRN ×2 (15:44)
--- NOTE | 2022-08-14 15:45 | NUR ---
ICU/RN ENEIDA LEVEL-21.VANCOMYCIN IV NOT GIVEN.
--- NOTE | 2022-08-14 16:54 | NUR ---
ICU/RN APTT-170. HEPARIN DRIP STOP.DR HERNANDEZ NOTIFIED.
[2022-08-14] MEDS: BLOOD SUGAR DIAGNOSTIC 1 EACH STRIP IN SCH ×2 (17:00→23:42)
[2022-08-14] MEDS: MONTELUKAST SODIUM (10MG) 10 MG TABLET PO SCH (17:00)
--- NOTE | 2022-08-14 18:15 | NUR ---
ICU/RN PM CARE PROVIDED.PT HAS REDNESS AND EXCORIATIONS ON JOSEFINA AREA,LOWER BACK AND BUTTOCKS .WOUND CONSULT ORDERED.Z-GUARD ORDERED. CONTINUE MONITORING
--- NOTE | 2022-08-14 19:10 | NUR ---
STATEMENT CLERK NOTES PATIENT RECEIVED ON BED, SEDATED, INTUBATED, SIZE 7.0 AND 20 CM BY THE LIP. ON MECHANICAL VENTILATOR WITH SETTING AC- 26, TV- 500, FIO2- 90%, PEEP- 10 SATING AT 99%. RESPIRATORY EVEN AND UNLABORED, NO SOB NOTED, NO S/S OF DISTRESS NOTED. V/S TAKEN AND RECORDED. WITH BERENICE PICC LINE, PATENT AND INTACT, FLUSHED WITH NS, RUNNING WITH PROPOFOL @ 35 MCG/KG/MIN, LEVO @ 1.6 MCG/KG/MIN. OGT PATENT AND INTACT, VERIFIED PLACEMENT BY AUSCULTATION, NOTED WITH MORE THAN 100ML RESIDUAL UPON ASPIRATION, TUBE FEEDING HELD. RUNNING WITH NEPHRO @ 35 ML/HR. ALBARADO CATHETER PATENT AND INTACT, PATIENT IS ANURIC. ALL SAFETY PRECAUTION PROVIDED. BED IN LOWEST POSITION, LOCKED. CALL LIGHT WITH IN REACH. CONTINUE TO MONITOR
[2022-08-14 20:06] LABS: *MYCOPLASMA PNEUMONIAE IgG <100 U/mL (0-99); *MYCOPLASMA PNEUMONIAE IgM <770 U/mL (0-769)
[2022-08-14] MEDS: Z GUARD REMEDY 4 OZ OINT TP SCH (21:26)
[2022-08-14] MEDS: NOREPINEPHRINE 32 MG in IV NS 0.9% 218 ML IV PRN (22:16)
[2022-08-14] MEDS: INSULIN REGULAR, HUMAN 100 UNIT/ML 3 ML VIAL SQ PRN (23:43)
--- NOTE | 2022-08-14 23:43 | NUR ---
RN NOTES NOTED WITH BLOOD SUGAR 124 MG/DL, NO INSULIN COVERAGE PER SLINDING SCALE. NO S/S OF HYPOGLYCEMIA NOTED.
[2022-08-15] VITALS (98 sets, daily range): BP systolic 73–170; BP diastolic 16–77
--- NOTE | 2022-08-15 02:50 | NUR ---
RN NOTES RECEIVED LATEST PTT- 170, NOTIFIED DEVONTE BUTTERFIELD, HOLD HEPARIN BY 1 HR. AND FOLLOW PROTOCOL.
[2022-08-15] MEDS: PROPOFOL 100 ML IV PRN ×4 (03:36→20:16)
[2022-08-15 04:34] LABS: HEMATOCRIT 26 % (33-45); HEMOGLOBIN 8.6 g/dL (11.5-14.8); LYMPHOCYTES # (AUTO) 1.6 K/uL (0.8-4.8); MEAN CORPUSCULAR HGB CONC 33 g/dl (31.0-36.0); MEAN CORPUSCULAR VOLUME 86 fL (82-100); MONOCYTES % (AUTO) 3.2 % (2.0-12.0); NEUTROPHILS # (AUTO) 29.4 K/uL (1.8-8.9); NEUTROPHILS % (AUTO) 91.8 % (43.0-81.0); PLATELET COUNT (AUTO) 271 K/uL (150-450); RED BLOOD CELL COUNT(AUTO) 3.04 MIL/uL (4.0-5.2)
[2022-08-15 04:41] LABS: CALCIUM, SERUM 8.4 mg/dL (8.5-10.1); CARBON DIOXIDE 24 mmol/L (21-32); CHLORIDE 99 mmol/L (98-107); CREATININE 2.9 mg/dL (0.6-1.3); GLUCOSE 198 mg/dL (74-106); MAGNESIUM 2.1 mg/dL (1.8-2.4); PHOSPHORUS 5.1 mg/dL (2.5-4.9); POTASSIUM 3.4 mmol/L (3.5-5.1); SODIUM SERUM 136 mmol/L (136-145); UREA NITROGEN, BLOOD 56 mg/dL (7-18)
[2022-08-15 05:23] LABS: WHITE BLOOD COUNT (AUTO) 32.1 K/uL (4.3-11.0)
[2022-08-15] MEDS: PIPERACILLIN /TAZOBACTAM 2.25 G in IV D5W 50 ML IV SCH ×3 (05:40→22:01)
[2022-08-15] MEDS: methylPREDNISolone SOD SUCC 125 MG/2ML VIAL IV SCH ×3 (05:40→22:05)
[2022-08-15] MEDS: BLOOD SUGAR DIAGNOSTIC 1 EACH STRIP IN SCH ×4 (06:44→23:46)
[2022-08-15] MEDS: INSULIN REGULAR, HUMAN 100 UNIT/ML 3 ML VIAL SQ PRN ×4 (06:51→23:49)
--- NOTE | 2022-08-15 07:56 | NUR ---
WOUND CARE CONSULT: PT SEEN FOR SKIN ASSESSMENT AND NOTED TO HAVE INCONTINENCE ASSOCIATED SKIN DAMAGE TO LOWER BUTTOCKS. PT INCONTINENT OF LIQUID BLACK STOOL. DISCUSSED SKIN PROTECTION WITH NURSING STAFF. RN TO DISCUSS WITH MD. PT IS ON VERITO ISOFLEX LOW AIRLOSS BED. MD IN AGREEMENT WITH PLAN OF CARE.
[2022-08-15] MEDS: LEVOTHYROXINE SODIUM 50 MCG TABLET PO SCH (08:21)
[2022-08-15] MEDS: MIDODRINE HCL (5MG) 5 MG TABLET PO SCH ×2 (08:22→17:16)
[2022-08-15] MEDS: PANTOPRAZOLE 40 MG TABLET.DR PO SCH ×2 (08:22→22:05)
[2022-08-15] MEDS: AMIODARONE HCL 200 MG TABLET PO SCH ×2 (08:23→17:17)
[2022-08-15 08:31] LABS: ABG BASE EXCESS -7.5 mmol/L; ABG OXYGEN SATURATION 94.3 % (92.0-98.5); ABG PCO2 34.6 mmHg (35.0-45.0); ABG PH 7.327 (7.350-7.450); ABG PO2 78.7 mmHg (75.0-100.0); AaDO2 383.2 mmHg; COHb 0.2 % (0.5-1.5); MetHb 0.2 % (0.0-1.5); O2Hb 93.9 % (94.0-97.0); PEEP,BG 10 cm H2O; SITE, ABG Right Radial; VT, ABG 500 mL
--- NOTE | 2022-08-15 08:45 | NUR ---
DR. WALSH AT THE UNIT SEEN PT. AND MD WAS MADE AWARE REGARDING GREENISH-BLACK LIQUID STOOL OF PT., WITH ORDER TO INSERT RECTAL TUBE; ALSO MADE MD AWARE THAT PER PELON-PRICING ANALYSTIT COMMUNICATIONS MANAGER ENDORSEMENT/ STATES "I NOTIFIED AND GOT ORDER FROM DR. BUTTERFIELD INSTEAD OF DR. WALSH REGARDING THE HEPARIN ORDER FROM TRAVELING SALES EXECUTIVE." DR WALSH STATES " THAT IS FINE."
[2022-08-15] MEDS: DOXYCYCLINE 100 MG in IV D5W 100 ML IV SCH ×2 (09:26→22:01)
[2022-08-15] MEDS: INSULIN GLARGINE, 100 UNIT/ML CARTRIDGE SQ SCH (09:36)
[2022-08-15] MEDS: Z GUARD REMEDY 4 OZ OINT TP SCH ×2 (09:38→22:01)
[2022-08-15] MEDS: POTASSIUM CHLORIDE 10 MEQ/50 ML PREMIXED IVPB FOR PERIPHERAL LINE IV SCH ×2 (10:00→10:29)
[2022-08-15] MEDS ORDERED: POTASSIUM CHLORIDE 10 MEQ/50 ML PREMIXED IVPB FOR PERIPHERAL LINE IV SCH (12:00)
[2022-08-15] MEDS: HEPARIN INFUSION/D5W 500 ML IV PRN (12:56)
[2022-08-15] MEDS: NEPRO 1,000 ML BOTTLE GT PRN (14:07)
[2022-08-15 14:59] LABS: BAND % (MANUAL) 7 % (0.0-5.0); LYMPHOCYTES % (MANUAL) 5 % (16-48); METAMYELOCYTES % 2 % (0-0); MONOCYTES % (MANUAL) 1 % (0-11.0); MYELOCYTES % 5 % (0-0); NEUTROPHILS % (MANUAL) 80 (42-76)
[2022-08-15] MEDS: MONTELUKAST SODIUM (10MG) 10 MG TABLET PO SCH (17:17)
--- NOTE | 2022-08-15 17:25 | NUR ---
HD SESSION/TREATMENT STARTED BY HD-RN
[2022-08-15] MEDS: VANCOMYCIN POST DIALYSIS 500MG IV PRN ×2 (22:01)
[2022-08-16] VITALS (50 sets, daily range): BP systolic 74–167; BP diastolic 29–73
[2022-08-16] MEDS: PROPOFOL 100 ML IV PRN ×4 (02:00→17:51)
[2022-08-16] MEDS ORDERED: NOREPINEPHRINE 4 MG/4 ML AMPUL IV ONE (03:05)
[2022-08-16 04:14] LABS: CALCIUM, SERUM 7.9 mg/dL (8.5-10.1); CARBON DIOXIDE 23 mmol/L (21-32); CHLORIDE 100 mmol/L (98-107); CREATININE 2.4 mg/dL (0.6-1.3); GLUCOSE 174 mg/dL (74-106); POTASSIUM 3.8 mmol/L (3.5-5.1); SODIUM SERUM 135 mmol/L (136-145); UREA NITROGEN, BLOOD 49 mg/dL (7-18)
[2022-08-16] MEDS: methylPREDNISolone SOD SUCC 125 MG/2ML VIAL IV SCH ×3 (05:40→21:24)
[2022-08-16] MEDS: NOREPINEPHRINE 32 MG in IV NS 0.9% 218 ML IV PRN (05:42)
[2022-08-16] MEDS: PIPERACILLIN /TAZOBACTAM 2.25 G in IV D5W 50 ML IV SCH ×3 (05:43→21:27)
[2022-08-16] MEDS: INSULIN REGULAR, HUMAN 100 UNIT/ML 3 ML VIAL SQ PRN ×3 (05:50→17:25)
[2022-08-16] MEDS: BLOOD SUGAR DIAGNOSTIC 1 EACH STRIP IN SCH ×3 (05:53→17:25)
--- NOTE | 2022-08-16 07:15 | NUR ---
RN NOTE RECEIVED PATIENT IN BED RESTING SEDATED,ORALLY INTUBATED ON MECHANICAL VENT SETTING PRESCRIBED,ON OGT FEEDING NEPRO 35CC/HR ON PROPOFOL 40MCG/MIN/KG, ON HEPARIN 440 UNIT/HR,ON LEVOPHED 0.2MCG/KG/MIN,CHECKED PLACEMENT IN PLACE NO RESIDUAL NOTED,SAFETY MEASURE IMPLEMENT,BED IN LOW POSITION AND LOCKED,HEAD OF THE BED ELEVATED,IV SITE IS ON RIGHT UPPER ARM PICC LINE,AND RIGHT FEMORAL HD CATH,INTACT PATENT,ALBARADO CATH IN PLACE ,RECTAL TUBE IN PLACE,CONTINUE TO MONITOR.
--- NOTE | 2022-08-16 07:25 | NUR ---
sericulture teacher. am care given. remaining same vent settings tolerated well. sat 98%. groundwater monitoring technician showing nsr. iv rt fem tlc. propofol 40 mcg/kg/min, levophed 0.2 mcg/kg/min, ngt intact. nepro 35 ml/h.heparin 440u/h. ptt next 0700
[2022-08-16] MEDS: LEVOTHYROXINE SODIUM 50 MCG TABLET PO SCH (07:41)
--- NOTE | 2022-08-16 08:00 | NUR ---
RN NOTE PTT RESULT IS 69.2 PER PROTOCOL WILL NO ROSAS THE RATE 440 UNIT/HR,NEXT PPT WILL BE TOMORROW AT 0600 CONTINUE TO MONITOR.
[2022-08-16 08:26] LABS: ABG BASE EXCESS -7.1 mmol/L; ABG PCO2 38.2 mmHg (35.0-45.0); ABG PH 7.306 (7.350-7.450); ABG PO2 71.6 mmHg (75.0-100.0); AaDO2 458.7 mmHg; COHb 0.4 % (0.5-1.5); MetHb 0.3 % (0.0-1.5); O2Hb 91.4 % (94.0-97.0); PEEP,BG 10 cm H2O; SITE, ABG Right Brachial; VT, ABG 500 mL
[2022-08-16] MEDS: PANTOPRAZOLE 40 MG TABLET.DR PO SCH ×2 (09:16→21:24)
[2022-08-16] MEDS: MIDODRINE HCL (5MG) 5 MG TABLET PO SCH ×2 (09:19→17:23)
[2022-08-16] MEDS: ACIDOPHILUS/BULGARICUS 1 EACH GRAN.PACK GT SCH (09:20)
[2022-08-16] MEDS: AMIODARONE HCL 200 MG TABLET PO SCH ×2 (09:20→17:24)
[2022-08-16] MEDS: DOXYCYCLINE 100 MG in IV D5W 100 ML IV SCH ×2 (09:20→21:24)
[2022-08-16] MEDS: INSULIN GLARGINE, 100 UNIT/ML CARTRIDGE SQ SCH (09:27)
[2022-08-16] MEDS: Z GUARD REMEDY 4 OZ OINT TP SCH ×2 (09:30→21:26)
[2022-08-16 15:54] LABS: OCCULT BLOOD STOOL POSITIVE (NEGATIVE)
[2022-08-16] MEDS: MONTELUKAST SODIUM (10MG) 10 MG TABLET PO SCH (17:23)
--- NOTE | 2022-08-16 18:41 | NUR ---
RN NOTE PATIENT REMAINS ON ORALLY INTUBATED,ON MECHANICAL VENT,SEDATED,ON ORALLY G-TUBE ON NEPRO 35CC/HR,ON PROPOFOL 40MCG/KG/MIN,ON LEVOPHED,0.2MCG/KG/MIN,ON HEPARIN DRIP 440 UNIT/HR,RECTAL TUBE IN PLACE,ALBARADO CATH IN PLACE NO URINE,IV SITE IS ON RIGHT UPPER ARM PICC LINE AND RIGHT FEMORAL HD CATH,ALL DUE MEDS GIVEN MD ORDERED,KEPT CLEAN AND DRY ALL THE TIME,TURNED AND REPOSITIONED EVERY 2 HOURS,KEPT HEAD OF THE BED ELEVATED ALL THE TIME,WILL ENDORSE NEXT COMING SHIFT FOR CONTINUATION OF CARE.
--- NOTE | 2022-08-16 19:44 | NUR ---
[facility] SH[facility] LE[facility]. INITIAL ASSESSMENT. RECEIVED THE PT REST IN BED. ORALLY INTUBATED. ETT 7.5, AC 26, TV 500, FIO2 80%, PEEP 10. SAT 96%. AUDIO VISUAL MANAGER SHOWING NSR. IV RT UPPER ARM PICC LINE PPROPOFOL 40MCG/KG/MIN, LEVOPHED 0.2MCG/KG/MIN, HEPARIN 440 U/H . HOB ELEVATED. NGT FEEDING TOLERATED WELL. WILL CONTINUE TO MONITOR VITALS.
[2022-08-16] MEDS: NEPRO 1,000 ML BOTTLE GT PRN (22:23)
[2022-08-16] MEDS: HEPARIN INFUSION/D5W 500 ML IV PRN (22:29)
[2022-08-17] VITALS (89 sets, daily range): BP systolic 46–178; BP diastolic 28–77
[2022-08-17] MEDS: BLOOD SUGAR DIAGNOSTIC 1 EACH STRIP IN SCH ×4 (00:44→17:05)
[2022-08-17] MEDS: INSULIN REGULAR, HUMAN 100 UNIT/ML 3 ML VIAL SQ PRN ×2 (01:09→06:00)
[2022-08-17 04:37] LABS: CALCIUM, SERUM 8.1 mg/dL (8.5-10.1); CARBON DIOXIDE 17 mmol/L (21-32); CHLORIDE 96 mmol/L (98-107); CREATININE 4.4 mg/dL (0.6-1.3); GLUCOSE 227 mg/dL (74-106); POTASSIUM 4.7 mmol/L (3.5-5.1); SODIUM SERUM 135 mmol/L (136-145)
[2022-08-17 04:38] LABS: BASOPHILS # (AUTO) 0.2 K/uL (0.0-0.2); BASOPHILS % (AUTO) 0.3 % (0.0-2.0); EOSINOPHILS % (AUTO) 0.1 % (0.0-6.0); HEMATOCRIT 21 % (33-45); LYMPHOCYTES # (AUTO) 3.5 K/uL (0.8-4.8); LYMPHOCYTES % (AUTO) 5.5 % (20.0-44.0); MEAN CORPUSCULAR HGB CONC 31 g/dl (31.0-36.0); MEAN CORPUSCULAR VOLUME 88 fL (82-100); MONOCYTES # (AUTO) 2.7 K/uL (0.1-1.30); MONOCYTES % (AUTO) 4.2 % (2.0-12.0); NEUTROPHILS # (AUTO) 57.6 K/uL (1.8-8.9); NEUTROPHILS % (AUTO) 89.9 % (43.0-81.0); PLATELET COUNT (AUTO) 316 K/uL (150-450); RED BLOOD CELL COUNT(AUTO) 2.34 MIL/uL (4.0-5.2)
[2022-08-17 05:19] LABS: UREA NITROGEN, BLOOD 99 mg/dL (7-18)
[2022-08-17 05:21] LABS: HEMOGLOBIN 6.4 g/dL (11.5-14.8); WHITE BLOOD COUNT (AUTO) 64.1 K/uL (4.3-11.0)
[2022-08-17] MEDS: PIPERACILLIN /TAZOBACTAM 2.25 G in IV D5W 50 ML IV SCH (05:38)
[2022-08-17] MEDS: methylPREDNISolone SOD SUCC 125 MG/2ML VIAL IV SCH ×3 (05:39→20:28)
[2022-08-17] MEDS: PROPOFOL 100 ML IV PRN ×2 (05:39→13:52)
[2022-08-17] MEDS: NOREPINEPHRINE 32 MG in IV NS 0.9% 218 ML IV PRN ×2 (06:07→21:16)
--- NOTE | 2022-08-17 06:10 | NUR ---
MAGNETIC LOCATER. AM CARE GIVEN. REMAINING SAME VENT SETTINGS TOLERATED WELL. NGT TOLERATED WELL. HOB ELEVATED. IV RT UPPER ARM PICC LINE. PROPOFOL 40 MCG/KG/MIN, HEPARIN 440 UN/H, LEVOPHED 0.1 MCG/KG/MIN .FC PATENT.FLEXA SEAL INTACT. TURN AND REPOSITION Q2H.
--- NOTE | 2022-08-17 07:05 | NUR ---
RN NOTES RECEIVED THE PT REST IN BED. ORALLY INTUBATED. ETT 7.5, AC 26, TV 500, FIO2 80%, PEEP 10. SAT 96%. INSULATOR TECHNICIAN SHOWING NSR. IV RT UPPER ARM PICC LINE SITE CDI, PROPOFOL 40MCG/KG/MIN, LEVOPHED 0.1 MCG/KG/MIN, HEPARIN 440 U/H . HOB ELEVATED. NGT FEEDING AT 35CC/HR RUNNING , NO RESIDUAL NOTED, SR UP x3. CALL LIGHT WITHIN EASY REACH, BED LOCKED AND IN LOWEST POSITION, CONTINUE TO MONITOR.
--- NOTE | 2022-08-17 07:20 | NUR ---
TURKISH RUBBER. AM LAB DIRECTOR OF COLLECTIONS AND ARCHIVES DROW FROM LINE. ABNORMAL RESULT RECEIVED, I REPEATED ALL AM LAB PERIPHERIAL DROW. ENDORSE TO DAMIEN SHIFT RN
[2022-08-17 08:09] LABS: BASOPHILS # (AUTO) 0.2 K/uL (0.0-0.2); BASOPHILS % (AUTO) 0.3 % (0.0-2.0); EOSINOPHILS % (AUTO) 0.1 % (0.0-6.0); HEMATOCRIT 21 % (33-45); LYMPHOCYTES # (AUTO) 7.1 K/uL (0.8-4.8); LYMPHOCYTES % (AUTO) 10.7 % (20.0-44.0); MEAN CORPUSCULAR HGB CONC 31 g/dl (31.0-36.0); MEAN CORPUSCULAR VOLUME 89 fL (82-100); MONOCYTES # (AUTO) 2.6 K/uL (0.1-1.30); NEUTROPHILS # (AUTO) 55.8 K/uL (1.8-8.9); NEUTROPHILS % (AUTO) 84.9 % (43.0-81.0); PLATELET COUNT (AUTO) 296 K/uL (150-450); RED BLOOD CELL COUNT(AUTO) 2.38 MIL/uL (4.0-5.2)
[2022-08-17 08:16] LABS: HEMOGLOBIN 6.6 g/dL (11.5-14.8); WHITE BLOOD COUNT (AUTO) 65.8 K/uL (4.3-11.0)
[2022-08-17] MEDS ORDERED: SODIUM BICARBONATE SYR 50 MEQ/50 ML DISP.SYRIN IV ONE (08:30)
[2022-08-17 08:33] LABS: ABG BASE EXCESS -19.3 mmol/L; ABG OXYGEN SATURATION 83.8 % (92.0-98.5); ABG PH 7.029 (7.350-7.450); ABG PO2 68.7 mmHg (75.0-100.0); AaDO2 460.8 mmHg; COHb 0.1 % (0.5-1.5); O2Hb 82.9 % (94.0-97.0); SITE, ABG Right Radial; VENT MODE, BG AC 26 500 80% +10
[2022-08-17] MEDS: LEVOTHYROXINE SODIUM 50 MCG TABLET PO SCH (08:33)
[2022-08-17] MEDS: MIDODRINE HCL (5MG) 5 MG TABLET PO SCH ×2 (08:34→16:28)
[2022-08-17] MEDS: AMIODARONE HCL 200 MG TABLET PO SCH ×2 (08:35→16:29)
[2022-08-17] MEDS: DOXYCYCLINE 100 MG in IV D5W 100 ML IV SCH ×2 (08:35→20:28)
[2022-08-17] MEDS: PANTOPRAZOLE 40 MG TABLET.DR PO SCH (08:35)
[2022-08-17] MEDS: Z GUARD REMEDY 4 OZ OINT TP SCH ×2 (08:36→20:29)
--- NOTE | 2022-08-17 09:00 | NUR ---
RN NOTES DR WALSH AND DR RO NOTIFIED REGARDING MORNING LAB RESULTS ,NEW ORDER RECEIVED
[2022-08-17] MEDS: ACIDOPHILUS/BULGARICUS 1 EACH GRAN.PACK GT SCH (09:02)
[2022-08-17] MEDS: ALBUMIN 25% 25 GM in PREMIX 1 EA IV PRN (09:31)
[2022-08-17] MEDS: INSULIN GLARGINE, 100 UNIT/ML CARTRIDGE SQ SCH (09:33)
[2022-08-17] MEDS: PANTOPRAZOLE 40 MG VIAL IV SCH ×2 (09:35→16:28)
[2022-08-17] MEDS: METRONIDAZOLE 500MG/ NS 100ML 500 MG in PREMIX 1 EA IV SCH ×3 (09:35→20:28)
[2022-08-17] MEDS: PHENYLEPHRINE 100 MG in IV NS 0.9% 240 ML IV PRN (10:06)
--- NOTE | 2022-08-17 10:06 | NUR ---
RN NOTES PT RECEIVING HD , LOW BP NOTED, DAVIDE STARTED PER . PER DR PEREZ . CONTINUE TO MONITOR
[2022-08-17] MEDS: VANCOMYCIN HCL 125 MG/2.5 ML ORAL.SUSP NG SCH ×2 (12:20→17:05)
[2022-08-17 13:17] LABS: ABG BASE EXCESS -8.6 mmol/L; ABG OXYGEN SATURATION 97.7 % (92.0-98.5); ABG PH 7.309 (7.350-7.450); ABG PO2 123.5 mmHg (75.0-100.0); AaDO2 411.2 mmHg; COHb 0.4 % (0.5-1.5); MetHb 0.3 % (0.0-1.5); SITE, ABG Right Radial; VENT MODE, BG AC 32 525 80% +10
--- NOTE | 2022-08-17 14:00 | NUR ---
RN NOTES PT RECEIVED TWO UNITS OF PRBC'S ON HD , VSS STABLE ,CONTINUE TO MONITOR.
[2022-08-17 14:16] LABS: NEUTROPHILS % (MANUAL) 71 (42-76)
[2022-08-17 14:17] LABS: BAND % (MANUAL) 5 % (0.0-5.0); EOSINOPHILS % (MANUAL) 1 % (0-4); LYMPHOCYTES % (MANUAL) 7 % (16-48); METAMYELOCYTES % 3 % (0-0); MONOCYTES % (MANUAL) 6 % (0-11.0); MYELOCYTES % 7 % (0-0)
[2022-08-17] MEDS: MONTELUKAST SODIUM (10MG) 10 MG TABLET PO SCH (17:07)
--- NOTE | 2022-08-17 18:00 | NUR ---
RN NOTES PT REMAINS INTUBATED, ET TUBE CARE DONE PRN, SEDATED, ON DIPRIVAN AT 15 MCG/KG/MIN , LEVO AT .2 MCG/KG/MIN RUNNING FOR BP SUPPORT, TF AT 35 CC/HR RUNNING , ON TELE A.FIB HR IN 90'S, IV SITE CDI, PT RECEIVED HD ON THIS SHIFT, NO SIGN OF ACTIVE BLEEDING NOTED ON THIS SHIFT . SR UP X3, CALL LIGHT WITHIN EASY REACH ,BED LOCKED AND IN LOWEST POSITION, WILL ENDORSE TO WIRE WRAPPER MACHINE OPERATOR NURSE FOR CONTIGUITY OF CARE. Addendum: 08/17/22 at 1836 by LATONIA MARTÍNEZ RN CORRECTION PT IS SR ON TELE [employer]
--- NOTE | 2022-08-17 19:09 | NUR ---
SENIOR VICE PRESIDENT AND CHIEF INFORMATION OFFICER. INITIAL ASSESSMENT. RECEIVED THE PT REST IN BED. ORALLY INTUBATED. SEDATED WIITH PROPOFOL. ETT 7.5, AC 32,TV 525,FIO2 60%,PEEP 10. SAT 97%. PT IS TACHYPNEIC, HOB ELEVATED. PT IS CRITICAL. NGT FEEDING ON. IV RT UPPER ARM PICC LINE. RT FEM HD CATH. FC PATENT. PROPOFOL 15 MCG/KG/MIN, LEVOPHED 0.3 MCG/KG/MIN, FLEXISEAL INTACT. WILL CONTINUE TO MONITOR VITALS.
[2022-08-17 21:39] LABS: BAND % (MANUAL) 2 % (0.0-5.0); LYMPHOCYTES % (MANUAL) 13 % (16-48); NEUTROPHILS % (MANUAL) 79 (42-76); REACTIVE LYMPHOCYTES 6 % (0-0)
[2022-08-18] VITALS (78 sets, daily range): BP systolic 0–150; BP diastolic 25–85
[2022-08-18] MEDS: PROPOFOL 100 ML IV PRN ×3 (00:14→17:48)
[2022-08-18] MEDS: BLOOD SUGAR DIAGNOSTIC 1 EACH STRIP IN SCH ×4 (00:16→17:10)
[2022-08-18] MEDS: VANCOMYCIN HCL 125 MG/2.5 ML ORAL.SUSP NG SCH ×4 (00:17→17:02)
[2022-08-18] MEDS: METRONIDAZOLE 500MG/ NS 100ML 500 MG in PREMIX 1 EA IV SCH ×3 (03:52→14:32)
[2022-08-18] MEDS: methylPREDNISolone SOD SUCC 125 MG/2ML VIAL IV SCH (05:38)
[2022-08-18] MEDS: DEXTROSE 50%-WATER 50 ML DISP.SYRIN IV PRN ×3 (05:47→17:10)
[2022-08-18 06:37] LABS: CARBON DIOXIDE 17 mmol/L (21-32); CHLORIDE 100 mmol/L (98-107); CREATININE 3.6 mg/dL (0.6-1.3); POTASSIUM 4.6 mmol/L (3.5-5.1); SODIUM SERUM 139 mmol/L (136-145)
--- NOTE | 2022-08-18 06:45 | NUR ---
CATERING AND EVENTS MANAGER. BLOOD SUGAR LOW SHOWING GLUCOMETER, LAB DROW DONE. DW50 IVP GIVEN. REPEATED 62, NOTIFIED MD WALSH. WILL MONITOR.
--- NOTE | 2022-08-18 06:47 | NUR ---
SUPERVISORY HISTORIAN. AM CARE, AM CARE GIVEN. LINEN CHANGED. REMAINING SAME OXYGEN ON. SAT 97%. CAFETERIA TABLE ATTENDANT SHOWING NSR. IV RT UPPER ARM PICC LINE. LEVOPHED 1MCG/KG/MIN, PROPOFOL 15MCG/KG/MIN, HOB ELEVATED. FLEXISEAL INTACT. NGT FEED OFF. PT IS NOT TOLERATED RESIDUAL HIGH. WILL MONITOR.
[2022-08-18 06:58] LABS: GLUCOSE 15 mg/dL (74-106)
[2022-08-18 06:59] LABS: UREA NITROGEN, BLOOD 82 mg/dL (7-18)
[2022-08-18] MEDS ORDERED: IV 10% DEXTROSE 1,000 ML IV PRN (07:00)
[2022-08-18] MEDS ORDERED: ONDANSETRON HCL/PF 4 MG/2 ML VIAL IV PRN (07:00)
[2022-08-18] MEDS: INSULIN GLARGINE, 100 UNIT/ML CARTRIDGE SQ SCH (08:08)
[2022-08-18] MEDS: MIDODRINE HCL (5MG) 5 MG TABLET PO SCH ×2 (08:20→17:02)
[2022-08-18] MEDS: LEVOTHYROXINE SODIUM 50 MCG TABLET PO SCH (08:20)
[2022-08-18] MEDS: AMIODARONE HCL 200 MG TABLET PO SCH ×2 (08:20→17:02)
[2022-08-18] MEDS: METOCLOPRAMIDE HCL 10 MG/2 ML VIAL IV SCH ×3 (08:21→18:07)
[2022-08-18] MEDS: PANTOPRAZOLE 40 MG VIAL IV SCH ×2 (08:21→17:03)
[2022-08-18] MEDS: Z GUARD REMEDY 4 OZ OINT TP SCH (08:21)
[2022-08-18 08:31] LABS: CALCIUM, SERUM 8.4 mg/dL (8.5-10.1); CARBON DIOXIDE 13 mmol/L (21-32); CHLORIDE 97 mmol/L (98-107); CREATININE 3.9 mg/dL (0.6-1.3); POTASSIUM 4.9 mmol/L (3.5-5.1); SODIUM SERUM 137 mmol/L (136-145)
[2022-08-18 08:41] LABS: GLUCOSE 36 mg/dL (74-106); UREA NITROGEN, BLOOD 87 mg/dL (7-18)
[2022-08-18 08:43] LABS: ABG BASE EXCESS -14.9 mmol/L; ABG OXYGEN SATURATION 89.6 % (92.0-98.5); ABG PCO2 27.7 mmHg (35.0-45.0); ABG PH 7.227 (7.350-7.450); ABG PO2 72.2 mmHg (75.0-100.0); AaDO2 469.1 mmHg; COHb 0.4 % (0.5-1.5); MetHb 0.6 % (0.0-1.5); O2Hb 88.7 % (94.0-97.0); PEEP,BG 10 cm H2O; SITE, ABG Left Radial; VT, ABG 525 mL
--- NOTE | 2022-08-18 08:50 | NUR ---
ICU/RN BLOOD SUGAR OF 36 CALLED BY LAB, ACCU CHECK PERFORMED, BLOOD SUGAR 20. D50 GIVEN.
[2022-08-18] MEDS: ACIDOPHILUS/BULGARICUS 1 EACH GRAN.PACK GT SCH (09:00)
[2022-08-18 09:01] LABS: BASOPHILS # (AUTO) 0.2 K/uL (0.0-0.2)
--- NOTE | 2022-08-18 09:07 | NUR ---
ICU/RN PT ABOUT TO START HD. WILL HOLD VIBRAMYCIN IVPB UNTIL HD IS COMPLETED.
[2022-08-18 09:14] LABS: BASOPHILS % (AUTO) 0.3 % (0.0-2.0); EOSINOPHILS % (AUTO) 0.1 % (0.0-6.0); HEMATOCRIT 32 % (33-45); HEMOGLOBIN 10.2 g/dL (11.5-14.8); LYMPHOCYTES # (AUTO) 1.8 K/uL (0.8-4.8); LYMPHOCYTES % (AUTO) 2.8 % (20.0-44.0); MEAN CORPUSCULAR HGB CONC 32 g/dl (31.0-36.0); MEAN CORPUSCULAR VOLUME 93 fL (82-100); MONOCYTES # (AUTO) 1.9 K/uL (0.1-1.30); MONOCYTES % (AUTO) 2.9 % (2.0-12.0); NEUTROPHILS # (AUTO) 61.8 K/uL (1.8-8.9); NEUTROPHILS % (AUTO) 93.9 % (43.0-81.0); PLATELET COUNT (AUTO) 106 K/uL (150-450)
[2022-08-18 09:18] LABS: WHITE BLOOD COUNT (AUTO) 65.8 K/uL (4.3-11.0)
[2022-08-18 09:34] LABS: ALANINE AMINOTRANSFERASE 2392 U/L (12-78); ALKALINE PHOSPHATASE 253 U/L (46-116); BILIRUBIN,TOTAL 4.6 mg/dL (0.2-1.0)
[2022-08-18 09:35] LABS: TOTAL PROTEIN, SERUM 5.3 g/dL (6.4-8.2)
[2022-08-18] MEDS: ALBUMIN 25% 25 GM in PREMIX 1 EA IV PRN (09:35)
[2022-08-18 09:57] LABS: ASPARTATE AMINOTRANSFERASE 6656 U/L (15-37)
[2022-08-18] MEDS: PHENYLEPHRINE 100 MG in IV NS 0.9% 240 ML IV PRN (10:08)
[2022-08-18] MEDS: DOXYCYCLINE 100 MG in IV D5W 100 ML IV SCH (11:29)
[2022-08-18 12:17] LABS: BAND % (MANUAL) 4 % (0.0-5.0); LYMPHOCYTES % (MANUAL) 8 % (16-48); MONOCYTES % (MANUAL) 6 % (0-11.0); NEUTROPHILS % (MANUAL) 72 (42-76)
[2022-08-18] MEDS: NOREPINEPHRINE 32 MG in IV NS 0.9% 218 ML IV PRN (15:46)
[2022-08-18] MEDS ORDERED: methylPREDNISolone SOD SUCC 40 MG/ML VIAL IV SCH (17:00)
[2022-08-18] MEDS: MONTELUKAST SODIUM (10MG) 10 MG TABLET PO SCH (17:03)
--- NOTE | 2022-08-18 19:30 | NUR ---
WOODWIND INSTRUMENTS INSPECTOR FIO2 INCREASED TO 100% FOR LOW SATURATION MID 80s
[2022-08-18] MEDS ORDERED: NOREPINEPHRINE 4 MG/4 ML AMPUL IV ONE (19:45)
--- NOTE | 2022-08-18 20:00 | NUR ---
CROP GRAIN OR LIVESTOCK FARM MANAGER NOTIFIED MD OF BRADYCARDIA WITH ORDER FOR DOPAMINE
[2022-08-18] MEDS ORDERED: DOPamine 400MG/D5W 250ML RTU 250 ML ONE (20:21)
--- NOTE | 2022-08-18 20:22 | NUR ---
PEN TENDER PRIOR TO PT CODING AGAIN DAUGHTER EPIFANIO AGREED TO MAKE PT DNR. THEY EXPRESSED BROTHER RADHA WOULD NOT WANT TO KEEP SUFFERING. RCD ORDER FROM DR WALSH TO MAKE PT DNR. Addendum: 08/18/22 at 2301 by LADONNA ALMANZA RN DAUGHTER'S NAME RICKEY WHYTE
--- NOTE | 2022-08-18 20:25 | NUR ---
RELATIONSHIP EXECUTIVE NOTE PT NOTED WITH PUPILS FIXED. NO RESPONSE TO PAINFUL STIMULI. ASYSTOLE ON MONITOR. NO PULSES PALPABLE. NO SPONTANEOUS RESPIRATION NOTED. UNABLE TO READ BLLOD PRESSURE. PT PRONOUNCED AT THIS TIME.
[2022-08-18] MEDS ORDERED: DOPamine 400 MG in IV D5W 250 ML IV PRN (20:30)
[2022-08-18] MEDS ORDERED: DOPamine 400 MG/D5W 250 ML RTU BAG IV ONE (20:30)
--- NOTE | 2022-08-18 20:35 | NUR ---
PLATING TANK OPERATOR POST MORTEM CARE RENDERED
--- NOTE | 2022-08-18 20:48 | NUR ---
SKIP HOIST OPERATOR BODY RELEASED BY ONE HARISH S/W MEDINA CASE NUMBER [id number]
--- NOTE | 2022-08-18 23:50 | NUR ---
DECORATIVE ENGRAVERMERGERS AND ACQUISITIONS BANKER LEFT BEDSIDE. NO MORTUARY INFO AT THIS TIME. PER DAUGHTER THEY WANT TO TAKE BODY TO [facility]. THEY WILL CALL ADMIN ONCE THEY HAVE THE INFO.
[2022-08-19] MEDS ORDERED: SODIUM BICARBONATE SYR 50 MEQ/50 ML DISP.SYRIN IV ONE (01:55)
[2022-08-19] MEDS ORDERED: EPINEPHRINE (1:10,000) SYRINGE 1 MG/10 ML DISP.SYRIN IVP ONE (01:55)
== END 2022-08-18 20:25 | DRG 870 ==
LOC: ER 17:50 → TRANSITION 08-07 03:11 → TELE1 08-07 08:25 → ICU 08-07 22:56
PROVIDERS: ADMIT Internal Medicine; ATTEND Internal Medicine
PROC: 05H633Z Insertion of Infusion Device into Left Subclavian Vein, Percutaneous Approach (ICD-10-PCS; 2022-08-08)
PROC: B547ZZA Ultrasonography of Left Subclavian Vein, Guidance (ICD-10-PCS; 2022-08-08)
PROC: 02HV33Z Insertion of Infusion Device into Superior Vena Cava, Percutaneous Approach (ICD-10-PCS; 2022-08-10)
PROC: B548ZZA Ultrasonography of Superior Vena Cava, Guidance (ICD-10-PCS; 2022-08-10)
PROC: 06HY33Z Insertion of Infusion Device into Lower Vein, Percutaneous Approach (ICD-10-PCS; 2022-08-12)
PROC: 5A1955Z Respiratory Ventilation, Greater than 96 Consecutive Hours (ICD-10-PCS; principal; 2022-08-13)
PROC: 0BH18EZ Insertion of Endotracheal Airway into Trachea, Via Natural or Artificial Opening Endoscopic (ICD-10-PCS; 2022-08-13)
PROC: 5A1D70Z Performance of Urinary Filtration, Intermittent, Less than 6 Hours Per Day (ICD-10-PCS; 2022-08-13)
PROC: 30233N1 Transfusion of Nonautologous Red Blood Cells into Peripheral Vein, Percutaneous Approach (ICD-10-PCS; 2022-08-17)
PROC: 5A12012 Performance of Cardiac Output, Single, Manual (ICD-10-PCS; 2022-08-18)
DX: A41.9 Sepsis, unspecified organism (principal); J96.01 Acute respiratory failure with hypoxia; I50.33 Acute on chronic diastolic (congestive) heart failure; J12.9 Viral pneumonia, unspecified; R65.21 Severe sepsis with septic shock; N17.0 Acute kidney failure with tubular necrosis; E87.4 Mixed disorder of acid-base balance; I48.20 Chronic atrial fibrillation, unspecified; D68.9 Coagulation defect, unspecified; K92.2 Gastrointestinal hemorrhage, unspecified; I11.0 Hypertensive heart disease with heart failure; E78.5 Hyperlipidemia, unspecified; E83.39 Other disorders of phosphorus metabolism; E83.42 Hypomagnesemia; E87.6 Hypokalemia; E88.09 Other disorders of plasma-protein metabolism, not elsewhere classified; E11.22 Type 2 diabetes mellitus with diabetic chronic kidney disease; E11.9 Type 2 diabetes mellitus without complications; Z79.4 Long term (current) use of insulin; E03.9 Hypothyroidism, unspecified; Z79.84 Long term (current) use of oral hypoglycemic drugs; Z20.822 Contact with and (suspected) exposure to COVID-19; Z95.2 Presence of prosthetic heart valve; Z95.0 Presence of cardiac pacemaker; Z95.1 Presence of aortocoronary bypass graft; I25.10 Atherosclerotic heart disease of native coronary artery without angina pectoris; D64.9 Anemia, unspecified; E66.9 Obesity, unspecified; Z68.29 Body mass index [BMI] 29.0-29.9, adult; I95.9 Hypotension, unspecified; G47.33 Obstructive sleep apnea (adult) (pediatric); D72.823 Leukemoid reaction; T45.515A Adverse effect of anticoagulants, initial encounter; T38.0X5A Adverse effect of glucocorticoids and synthetic analogues, initial encounter; Y92.89 Other specified places as the place of occurrence of the external cause
CPT/HCPCS: 31720; 36410; 36415; 36569; 36600; 71045-TC; 76770-TC; 80048-TC; 80053-TC; 80061-TC; 80076-TC; 80202-TC; 82272-TC; 82533; 82728-TC; 82803-TC; 82962-TC; 83540-TC; 83735-TC; 83880; 84100-TC; 84439-TC; 84443-TC; 84478-TC; 84484-TC; 85025-TC; 85610-TC; 85730-TC; 86704; 86705; 86706; 86713; 86738; 86803; 86850-TC; 87040-TC; 87081-TC; 87340; 90935-TC; 93307-TC; 94002-TC; 94003-TC; 94760-TC; 94762-TC; 94799-TC; A4216; A4217; C9113; C9803; G0378; J0171; J0282; J0456; J0696; J1160; J1265; J1644; J1815; J1940; J2370; J2405; J2543; J2765; J2916; J2920; J2930; J3370; J3430; J3475; J3480; J3490; J7030; J7040; J7050; J7060; P9016; P9047; U0003